=== PATIENT | female | born 1980 | race Caucasian/White ===

== ENCOUNTER → 2017-11-15 16:18 | Outpatient (CLI) | payer MEDICAID, SELFPAY ==
[2017-11-15 23:14] LABS: Amphetamine/Metha Screen,Urine Negative ng/mL (<1000); Barbiturates Screen,Urine Negative ng/mL (<200); Benzodiazepines Screen,Urine Negative ng/mL (200); Cannabinoid Screen,Urine Negative ng/mL (<50); Cocaine Screen,Urine Negative ng/g (<300); Methadone Screen,Urine Negative ng/mL (<300); Opiate Screen,Urine Negative ng/mL (<300); Phencyclidine Screen,Urine Negative ng/mL (<25)
[2017-11-17 18:27] LABS: HIV Screen 4th Generation wRfx Non Reactive (Non Reactive); Rapid Plasma Reagin Ab Titer Non Reactive (NonRea<1:1); Rubella Antibodies, IgG 8.67 index (Immune >0.99)
== END ==
PROVIDERS: Family Provider Family Medicine; PCP Family Medicine; Visit Provider Obstetrics & Gynecology
DX: Z34.90 Encounter for supervision of normal pregnancy, unspecified, unspecified trimester (principal)
CPT/HCPCS: 36415; 80305; 84443; 86592; 86703; 86762; 86850; G0432

== ENCOUNTER 2017-12-17 15:16 | Observation (INO) ==
--- NOTE | 2017-12-17 16:49 | Progress Note ---
Internal Medicine - PN: Subj *Date: 12/17/17 (See H&P. This 37-year-old 3, para 2, Ab0 white female at 11-12 weeks of gestation is admitted because of severe hypertension, as high as 203/116. Her deep tendon reflexes are normal. On admission to the labor room, her blood pressure is 144/99, and she appears calm. A vaginal ultrasound today confirmed a viable at 11 weeks 4 days. Lab work has been drawn , and consult has been placed with Dr. Chetan Hernandez (internal medicine) to evaluate and treat her hypertension. The patient understands the risks associated with her condition.) *Time: 16:47 Exam Vital signs and Labs for Last 24 Hours: Temp Pulse Resp BP Pulse Ox 98.4 F 72 18 144/90 99 12/17/17 15:23 12/17/17 15:23 12/17/17 15:23 12/17/17 15:23 12/17/17 15:23 I & O for Last 24 hours: Intake & Output 12/15/17 12/16/17 12/17/17 12/18/17 11:59 11:59 11:59 11:59 Weight 147 lb 2 oz
[2017-12-17 17:50] LABS: Microscopic, Urine URINE MICROSCOPIC (MICROSCOPIC)
[2017-12-17 17:53] LABS: Basophils # 0.1 K/mm3 (0-0.2); Basophils % 0.6 % (0.1-2.0); Eosinophils # 0.2 K/mm3 (0.0-0.4); Eosinophils % 1.2 % (0.1-12.0); Hematocrit 40.4 % (37.0-47.0); Hemoglobin 13.4 g/dL (12.2-16.2); Lymphocytes # 2.2 K/mm3 (0.7-4.5); Lymphocytes % 17.6 K/mm3 (10-50); Mean Corpuscular HGB Conc 33.2 g/dL (31.8-35.4); Mean Corpuscular Hemoglobin 30.2 pg (27.0-31.2); Mean Corpuscular Volume 90.8 fl (81-99); Mean Platelet Volume 7.6 fl (7.4-10.4); Monocytes # 0.5 K/mm3 (0.1-1.0); Monocytes % 4.1 % (1.7-9.3); Neutrophils # 9.7 K/mm3 (1.8-7.8); Neutrophils % 76.6 % (37.0-80.0); Platelet Count 343 K/mm3 (142-424); Red Blood Count 4.45 M/mm3 (4.20-5.40); Red Cell Distribution Width 12.1 % (11.5-17.5); White Blood Count 12.6 K/mm3 (4.8-10.8)
[2017-12-17 17:54] LABS: Appearance,Urine CLEAR (Clear); Bilirubin,Urine Negative (Negative); Blood, Urine Negative (Negative); Color,Urine YELLOW (Yellow); Glucose,Urine (UA) Negative (Negative); Ketones,Urine Negative (Negative); Leukocyte Esterase,Urine Negative (Negative); PH,Urine 7.5 (5.0-8.5); Protein,Urine Negative (Negative); Urobilinogen,Urine 0.2 EU/dl (0.2)
[2017-12-17 17:55] LABS: Anion Gap 13.6 mEq/L (5-15); Potassium 3.6 mmoL/L (3.5-5.1)
[2017-12-17 18:02] LABS: Bacteria,Urine Trace /lpf
--- NOTE | 2017-12-17 18:22 | Consult Report ---
*Admission Date: 12/17/17 *Chief complaint: Malignant hypertension *History of present illness: Internal medicine consult note: Consulting physician Dr. Gilles Ureña: Reason for consultation: Hypertension evaluation and management 37-year-old white female, , 11 weeks of gestation who has a history of essential hypertension diagnosed after her second 13 years ago. Her first , 15 years ago, was complicated by late term hypertension, treated with bedrest and received a diagnosis of preeclampsia. Delivery was uncomplicated and she did well, after her second delivery 2 years later-which was uncomplicated and the was not associate with hypertension-she received the diagnosis of essential hypertension several months after her second child born. She has been on lisinopril which was effective but caused sweating, and then losartan which did well for her for several years. She stopped her control pills because of some hormonal imbalances and unexpectedly became with this and was immediately stopped from her losartan and labetalol 100 mg was started. This has done well and patient had been taking this twice daily until she had noted that her blood pressure was too low and she felt tired and sluggish. She began taking the medicine just once daily and documented blood pressures that were very well controlled in the low 110-120 level systolically. 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 Her coworkers noted that she felt bad and asked her to sit down thinking she might be having a panic attack. Her blood pressure was measured above 200 systolic. She was brought to her unindentured apprentice office were blood pressure was repeated in the 190 range. She was admitted to hospital for further evaluation and I was consulted. Currently the patient feels well. Has a negative review of systems below except for the symptoms noted above. [facility] History Medical History: Reports:: Anxiety, Hypertension Other Medical History: Reports: Other Other Surgeries: Yes: Other. No: Amputation: No Fractures: No - *Social History Smoking Status: Never smoker Alcohol Intake: never - Psychiatric History Pschychiatric History:: Reports:: Anxiety *Family Hx:: Stroke, Hypertension, Cancer, Coronary Artery Disease Para: 2 Review of Systems - Review of Systems Review of systems:: unable to obtain, other, pertinent systems reviewed and negative unless documented below - Constitutional Denies anorexia, Denies body ache(s), Denies chills, Denies excessive sweating, Denies fever(s) - Eyes Denies blind spots, Denies blurry vision, Denies change in vision, Denies double vision - ENT Denies abnormal hearing, Denies poor balance, Denies dizziness - *Cardiovascular Reports chest pain (Intermittent/sharp pains with working), Denies chest pain at rest, Denies chest pain with activity, Denies leg pain with activity, Denies excessive sweating, Denies shortness of breath (Non-anginal pain), Denies irregular heart rhythm, Denies leg swelling, Denies radiating jaw, neck or arm pain - *Respiratory Denies change in phlegm color, Denies chest congestion, Denies cough, Denies shortness of breath with activity - *Gastrointestinal Denies abdominal pain, Denies belching, Denies bloating - *Genitourinary Comments: The [employer] CREATIVE DIRECTOR notes - *Musculoskeletal Denies abnormal walking, Denies joint pain, Denies decreased muscle mass - Integumentary/Breasts Denies acne, Denies hair loss, Denies bleeding lesions, Denies change in hair - *Neurologic Denies abnormal walking, Denies abnormal hearing, Denies abnormal speech, Denies seizure-like activity, Denies unsteadiness, Denies dizziness Meds Home Medications Medication Instructions Recorded Confirmed Type cetirizine 10 mg tablet 10 mg PO DAILY tab 11/01/17 12/17/17 History ferrous sulfate 325 mg (65 mg 325 mg PO DAILY tab 11/15/17 12/17/17 History iron) tablet 1 tab PO DAILY 11/15/17 12/17/17 History vitamin,calcium,nfnunrwm-pfuf-elmdk acid tablet Labetalol HCl [Normodyne 100mg 100 mg PO BID 12/17/17 12/17/17 History tablet] Allergies Allergy/AdvReac Type Severity Reaction Status Date / Time No Known Allergies Allergy Unverified 12/17/17 14:21 Exam Vital signs and Labs for Last 24 Hours: Temp Pulse Resp BP Pulse Ox 98.4 F 72 18 158/99 99 12/17/17 16:30 12/17/17 16:30 12/17/17 16:30 12/17/17 17:45 12/17/17 16:30 Laboratory Results - last 24 hr 12/17/17 15:40: WBC 12.6 H, RBC 4.45, Hgb 13.4, Hct 40.4, MCV 90.8, MCH 30.2, MCHC 33.2, RDW 12.1, Plt Count 343, MPV 7.6, Neut % (Auto) 76.6, Lymph % (Auto) 17.6, [place] % (Auto) 4.1, Eos % (Auto) 1.2, Baso % (Auto) 0.6, Neut # (Auto) 9.7 H, Lymph # (Auto) 2.2, [place] # (Auto) 0.5, Eos # (Auto) 0.2, Baso # (Auto) 0.1 12/17/17 15:40: Sodium 137, Potassium 3.6, Chloride 101, Carbon Dioxide 26, Anion Gap 13.6, BUN 13, Creatinine 0.54 L, Estimated Creat Clear 153, Estimated GFR 128, Est GFR ( Amer) 155, Glucose 95 12/17/17 15:40: Urine Color Yellow, Urine Appearance Clear, Urine pH 7.5, Ur Specific [place] 1.010, Urine Protein Negative, Urine Glucose (UA) Negative, Urine Ketones Negative, Urine Blood Negative, Urine Nitrate Negative, Urine Bilirubin Negative, Urine Urobilinogen 0.2, Ur Leukocyte Esterase Negative, Urine RBC None, Urine WBC 3-5, Ur Squamous Epith Cells 3-5, Urine Bacteria Trace I & O for Last 24 hours: Intake & Output 12/15/17 12/16/17 12/17/17 12/18/17 11:59 11:59 11:59 11:59 Weight 147 lb 2 oz Narrative: Patient is alert, pleasant, oriented 3. Talkative. Cranial nerve exam is unremarkable with symmetric and normal cranial nerves II- XII bilaterally. Lungs are clear, well-expanded. No JVD. Heart rate regular without murmurs gallops rubs, no inducible murmurs with handgrip or Valsalva. Nondisplaced PMI. She has no edema or clubbing in hands or feet. Abdomen is soft and nontender. Peripheral neurologic exam nonfocal, good distal perfusion. Internal Medicine - CN: Reslt - Labs CBC & Chem 7: 12/17/17 15:40 12/17/17 15:40 Labs: Short CBC 12/17/17 Range/Units 15:40 WBC 12.6 H (4.8-10.8) K/mm3 Hgb 13.4 (12.2-16.2) g/dL Hct 40.4 (37.0-47.0) % Plt Count 343 (142-424) K/mm3 BMP 12/17/17 15:40 Sodium 137 Potassium 3.6 Chloride 101 Carbon Dioxide 26 BUN 13 Creatinine 0.54 L Glucose 95 Urine 12/17/17 Range/Units 15:40 Urine Color Yellow (Yellow) Urine Appearance Clear (Clear) Urine pH 7.5 (5.0-8.5) Ur Specific [place] 1.010 (1.005-1.030) Urine Protein Negative (Negative) Urine Glucose (UA) Negative (Negative) Assessment and Plan (1) Accelerated hypertension Current visit: Yes Status: Acute Category: Medical Code(s): I10 - Essential (primary) hypertension No evidence of preeclampsia given her normal physical exam and normal urinalysis. EKG. Echocardiogram to assess her palpitation history. Agree with labetalol as a good choice during the . Would increase dose to 200 mg twice daily and watch overnight.
--- NOTE | 2017-12-18 06:53 | Progress Note ---
Internal Medicine - PN: Subj *Date: 12/18/17 *Time: 06:49 Exam Vital signs and Labs for Last 24 Hours: Temp Pulse Resp BP Pulse Ox 98.2 F 74 17 124/73 99 12/17/17 20:30 12/18/17 04:25 12/18/17 04:25 12/18/17 04:25 12/17/17 16:30 Laboratory Results - last 24 hr 12/17/17 15:40: WBC 12.6 H, RBC 4.45, Hgb 13.4, Hct 40.4, MCV 90.8, MCH 30.2, MCHC 33.2, RDW 12.1, Plt Count 343, MPV 7.6, Neut % (Auto) 76.6, Lymph % (Auto) 17.6, [place] % (Auto) 4.1, Eos % (Auto) 1.2, Baso % (Auto) 0.6, Neut # (Auto) 9.7 H, Lymph # (Auto) 2.2, [place] # (Auto) 0.5, Eos # (Auto) 0.2, Baso # (Auto) 0.1 12/17/17 15:40: Sodium 137, Potassium 3.6, Chloride 101, Carbon Dioxide 26, Anion Gap 13.6, BUN 13, Creatinine 0.54 L, Estimated Creat Clear 153, Estimated GFR 128, Est GFR ( Amer) 155, Glucose 95 12/17/17 15:40: Urine Color Yellow, Urine Appearance Clear, Urine pH 7.5, Ur Specific [place] 1.010, Urine Protein Negative, Urine Glucose (UA) Negative, Urine Ketones Negative, Urine Blood Negative, Urine Nitrate Negative, Urine Bilirubin Negative, Urine Urobilinogen 0.2, Ur Leukocyte Esterase Negative, Urine RBC None, Urine WBC 3-5, Ur Squamous Epith Cells 3-5, Urine Bacteria Trace I & O for Last 24 hours: Intake & Output 12/15/17 12/16/17 12/17/17 12/18/17 11:59 11:59 11:59 11:59 Weight 147 lb 2 oz Assessment and Plan (1) Accelerated hypertension Current visit: Yes Status: Acute Category: Medical Code(s): I10 - Essential (primary) hypertension
--- NOTE | 2017-12-18 08:52 | Progress Note ---
Internal Medicine - PN: Subj *Date: 12/18/17 *Time: 08:50 Interval history: This is hospital day #2. The patient is afebrile. Her vital signs are stable. Her blood pressure on increased labetalol is in the 130s over 70s. She feels much better. She had an echocardiogram this morning (results pending), as ordered per Dr. Hernandez. He has increased her labetalol to 200 mg p.o. twice daily. I am going to have her ambulate and observe her blood pressure under those conditions. Exam Vital signs and Labs for Last 24 Hours: Temp Pulse Resp BP Pulse Ox 98.2 F 74 17 124/73 99 12/17/17 20:30 12/18/17 04:25 12/18/17 04:25 12/18/17 04:25 12/17/17 16:30 Laboratory Results - last 24 hr 12/17/17 15:40: WBC 12.6 H, RBC 4.45, Hgb 13.4, Hct 40.4, MCV 90.8, MCH 30.2, MCHC 33.2, RDW 12.1, Plt Count 343, MPV 7.6, Neut % (Auto) 76.6, Lymph % (Auto) 17.6, [place] % (Auto) 4.1, Eos % (Auto) 1.2, Baso % (Auto) 0.6, Neut # (Auto) 9.7 H, Lymph # (Auto) 2.2, [place] # (Auto) 0.5, Eos # (Auto) 0.2, Baso # (Auto) 0.1 12/17/17 15:40: Sodium 137, Potassium 3.6, Chloride 101, Carbon Dioxide 26, Anion Gap 13.6, BUN 13, Creatinine 0.54 L, Estimated Creat Clear 153, Estimated GFR 128, Est GFR ( Amer) 155, Glucose 95 12/17/17 15:40: Urine Color Yellow, Urine Appearance Clear, Urine pH 7.5, Ur Specific [place] 1.010, Urine Protein Negative, Urine Glucose (UA) Negative, Urine Ketones Negative, Urine Blood Negative, Urine Nitrate Negative, Urine Bilirubin Negative, Urine Urobilinogen 0.2, Ur Leukocyte Esterase Negative, Urine RBC None, Urine WBC 3-5, Ur Squamous Epith Cells 3-5, Urine Bacteria Trace I & O for Last 24 hours: Intake & Output 12/15/17 12/16/17 12/17/17 12/18/17 11:59 11:59 11:59 11:59 Weight 147 lb 2 oz Assessment and Plan (1) Accelerated hypertension Current visit: Yes Status: Acute Category: Medical Code(s): I10 - Essential (primary) hypertension
--- NOTE | 2017-12-18 09:25 | Progress Note ---
Internal Medicine - PN: Subj *Date: 12/18/17 *Time: 11:56 Interval history: Patient feels well. She reports ongoing issues with constipation. Alert and oriented x3. Rate and rhythm regular. Lung sounds clear and equal. Abdomen soft and nontender. No LE edema. Pulses 2+ Exam Vital signs and Labs for Last 24 Hours: Temp Pulse Resp BP Pulse Ox 98.2 F 74 17 124/73 99 12/17/17 20:30 12/18/17 04:25 12/18/17 04:25 12/18/17 04:25 12/17/17 16:30 Laboratory Results - last 24 hr 12/17/17 15:40: WBC 12.6 H, RBC 4.45, Hgb 13.4, Hct 40.4, MCV 90.8, MCH 30.2, MCHC 33.2, RDW 12.1, Plt Count 343, MPV 7.6, Neut % (Auto) 76.6, Lymph % (Auto) 17.6, [place] % (Auto) 4.1, Eos % (Auto) 1.2, Baso % (Auto) 0.6, Neut # (Auto) 9.7 H, Lymph # (Auto) 2.2, [place] # (Auto) 0.5, Eos # (Auto) 0.2, Baso # (Auto) 0.1 12/17/17 15:40: Sodium 137, Potassium 3.6, Chloride 101, Carbon Dioxide 26, Anion Gap 13.6, BUN 13, Creatinine 0.54 L, Estimated Creat Clear 153, Estimated GFR 128, Est GFR ( Amer) 155, Glucose 95 12/17/17 15:40: Urine Color Yellow, Urine Appearance Clear, Urine pH 7.5, Ur Specific [place] 1.010, Urine Protein Negative, Urine Glucose (UA) Negative, Urine Ketones Negative, Urine Blood Negative, Urine Nitrate Negative, Urine Bilirubin Negative, Urine Urobilinogen 0.2, Ur Leukocyte Esterase Negative, Urine RBC None, Urine WBC 3-5, Ur Squamous Epith Cells 3-5, Urine Bacteria Trace I & O for Last 24 hours: Intake & Output 12/15/17 12/16/17 12/17/17 12/18/17 11:59 11:59 11:59 11:59 Weight 147 lb 2 oz Assessment and Plan (1) Accelerated hypertension Current visit: Yes Status: Acute Category: Medical Code(s): I10 - Essential (primary) hypertension - Assessment and plan all Dx Assessment and Plan for all problems:: Patient responded nicely to increased dose of labetolol with SBP 105-120 this morning. Labs were reviewed and unremarkable. Preliminary Echo was unremarkable with EF 60%. Final report pending. Ok to discharge on Labetolol 200 mg PO BID with short term FU in our office with Dr. Hernandez on Sunday.
[2017-12-18 11:42] VITALS: BP 105/58
--- NOTE | 2017-12-18 12:59 | Progress Note ---
Internal Medicine - PN: Subj *Date: 12/18/17 *Time: 12:56 (The patient's echocardiogram was normal. She has been ambulating and doing well on labetalol 200 mg twice daily. Her blood pressure is currently 105/58 with a pulse rate of 76. She will be discharged, to be followed by Dr. Hernandez in 3 days and by myself in 6 days. She is to remain at home, not go to work, and engage in no strenuous activity. This is been explained to the patient and her .) Exam Vital signs and Labs for Last 24 Hours: Temp Pulse Resp BP Pulse Ox 98.3 F 76 16 105/58 98 12/18/17 11:23 12/18/17 11:23 12/18/17 11:23 12/18/17 11:23 12/18/17 11:23 Laboratory Results - last 24 hr 12/17/17 15:40: WBC 12.6 H, RBC 4.45, Hgb 13.4, Hct 40.4, MCV 90.8, MCH 30.2, MCHC 33.2, RDW 12.1, Plt Count 343, MPV 7.6, Neut % (Auto) 76.6, Lymph % (Auto) 17.6, [place] % (Auto) 4.1, Eos % (Auto) 1.2, Baso % (Auto) 0.6, Neut # (Auto) 9.7 H, Lymph # (Auto) 2.2, [place] # (Auto) 0.5, Eos # (Auto) 0.2, Baso # (Auto) 0.1 12/17/17 15:40: Sodium 137, Potassium 3.6, Chloride 101, Carbon Dioxide 26, Anion Gap 13.6, BUN 13, Creatinine 0.54 L, Estimated Creat Clear 153, Estimated GFR 128, Est GFR ( Amer) 155, Glucose 95 12/17/17 15:40: Urine Color Yellow, Urine Appearance Clear, Urine pH 7.5, Ur Specific [place] 1.010, Urine Protein Negative, Urine Glucose (UA) Negative, Urine Ketones Negative, Urine Blood Negative, Urine Nitrate Negative, Urine Bilirubin Negative, Urine Urobilinogen 0.2, Ur Leukocyte Esterase Negative, Urine RBC None, Urine WBC 3-5, Ur Squamous Epith Cells 3-5, Urine Bacteria Trace I & O for Last 24 hours: Intake & Output 12/16/17 12/17/17 12/18/17 12/19/17 11:59 11:59 11:59 11:59 Weight 147 lb 2 oz Assessment and Plan (1) Accelerated hypertension Current visit: Yes Status: Acute Category: Medical Code(s): I10 - Essential (primary) hypertension
--- NOTE | 2017-12-18 13:03 | Discharge Summary ---
General - General Admission date: 12/17/17 Discharge date: 12/18/17 HPI HPI: Internal medicine consult note: Consulting physician Dr. Gilles Ureña: Reason for consultation: Hypertension evaluation and management 37-year-old white female, , 11 weeks of gestation who has a history of essential hypertension diagnosed after her second 13 years ago. Her first , 15 years ago, was complicated by late term hypertension, treated with bedrest and received a diagnosis of preeclampsia. Delivery was uncomplicated and she did well, after her second delivery 2 years later-which was uncomplicated and the was not associate with hypertension-she received the diagnosis of essential hypertension several months after her second child born. She has been on lisinopril which was effective but caused sweating, and then losartan which did well for her for several years. She stopped her control pills because of some hormonal imbalances and unexpectedly became with this and was immediately stopped from her losartan and labetalol 100 mg was started. This has done well and patient had been taking this twice daily until she had noted that her blood pressure was too low and she felt tired and sluggish. She began taking the medicine just once daily and documented blood pressures that were very well controlled in the low 110-120 level systolically. 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 Her coworkers noted that she felt bad and asked her to sit down thinking she might be having a panic attack. Her blood pressure was measured above 200 systolic. She was brought to her fashion marketer office were blood pressure was repeated in the 190 range. She was admitted to hospital for further evaluation and I was consulted. Currently the patient feels well. Has a negative review of systems below except for the symptoms noted above. Hospital Course Hospital Course: This 37-year-old Ab0 white female at 11-12 weeks of gestation was admitted with extreme hypertension, as high as 203/120. Her lab work, OB ultrasound, and echocardiogram are all normal. She had been on labetalol, but was only taking it (100 mg) once a day. Dr. Chetan Hernandez (line closer) consulted and increased her labetalol to 200 mg p.o. twice a day. On that medication and bedrest, her blood pressure has remained stable and is currently 105/58. She has been ambulating, without an adverse effect on her blood pressure. Will be discharged today on labetalol 200 mg p.o. twice daily, with instructions to stay at home (not go to work) and engage in no strenuous activity. She is to follow-up with Dr. Hernandez in 3 days and with myself in 6 days. She is not a smoker. Objective Vital signs: Temp Pulse Resp BP Pulse Ox 98.3 F 76 16 105/58 98 12/18/17 11:23 12/18/17 11:23 12/18/17 11:23 12/18/17 11:23 12/18/17 11:23 Results Labs on day of discharge: Labs from last 24 hours 12/17/17 12/17/17 12/17/17 15:40 15:40 15:40 WBC 12.6 H RBC 4.45 Hgb 13.4 Hct 40.4 MCV 90.8 MCH 30.2 MCHC 33.2 RDW 12.1 Plt Count 343 MPV 7.6 Neut % (Auto) 76.6 Lymph % (Auto) 17.6 [place] % (Auto) 4.1 Eos % (Auto) 1.2 Baso % (Auto) 0.6 Neut # (Auto) 9.7 H Lymph # (Auto) 2.2 [place] # (Auto) 0.5 Eos # (Auto) 0.2 Baso # (Auto) 0.1 Sodium 137 Potassium 3.6 Chloride 101 Carbon Dioxide 26 Anion Gap 13.6 BUN 13 Creatinine 0.54 L Estimated Creat Clear 153 Estimated GFR 128 Est GFR ( Amer) 155 Glucose 95 Urine Color Yellow Urine Appearance Clear Urine pH 7.5 Ur Specific [place] 1.010 Urine Protein Negative Urine Glucose (UA) Negative Urine Ketones Negative Urine Blood Negative Urine Nitrate Negative Urine Bilirubin Negative Urine Urobilinogen 0.2 Ur Leukocyte Esterase Negative Urine RBC None Urine WBC 3-5 Ur Squamous Epith Cells 3-5 Urine Bacteria Trace DS: Diagnosis - Discharge Diagnosis (1) Accelerated hypertension Status: Acute Discharge Plan - Patient Discharge Instructions - Follow up Plan Home Medications: Home Medications Medication Instructions Recorded Confirmed Type cetirizine 10 mg tablet 10 mg PO DAILY tab 11/01/17 12/17/17 History ferrous sulfate 325 mg (65 mg 325 mg PO DAILY tab 11/15/17 12/17/17 History iron) tablet 1 tab PO DAILY 11/15/17 12/17/17 History vitamin,calcium,weozhigl-tkxz-yflms acid tablet Labetalol HCl [Normodyne 100mg 100 mg PO BID 12/17/17 12/17/17 History tablet] Prescriptions/Medication Reconciliation: No Action ferrous sulfate 325 mg (65 mg iron) tablet 325 mg PO DAILY tab cetirizine 10 mg tablet 10 mg PO DAILY tab vitamin,calcium,bcnvpeot-ecat-xfpbk acid tablet 1 tab PO DAILY Labetalol HCl [Normodyne 100mg tablet] 100 mg PO BID
--- NOTE | 2017-12-18 22:23 | Cardiology Report ---
PROCEDURE: 2-D M-mode and color Doppler study INDICATIONS FOR THE TEST: Chest pain COPD Heart Murmur Tobacco Smoking Palpitations+ Fatigue Syncope Edema Hypertension+Diabetes Mellitus Rheumatic Fever SOB JEFFERY Obesity Hyperlipidemia Family History HD Additional History B/S PERFORMED PATIENT INFORMATION HEIGHT:62 WEIGHT:147 GENDER: Female B/P:158/99 2-D/M-MODE INTERPRETATION: 2-D MEASUREMENTS OBSERVED VALUES IN CMS Right Ventricular Dimension (RVDd) 2.0 Interventricular Septum (Thickness)(IVsd) 0.8 Left Ventricular Internal Dimensions(LVIDd) 4.9 Left Ventricular Posterior Wall (Thickness)(LVPWd) 0.8 Aortic Root 2.6 Aortic Cusp Separation 1.9 Left Atrial Dimensions (LAD) 3.4 2D 1. Left atrium is normal size, left ventricle is normal size, there is no concentric left ventricular hypertrophy, visually estimated ejection fraction 55% with no obvious regional wall motion abnormality. 2. The right atrium and right ventricle are normal size and contractility. 3. The aortic valve is minimally thickened and fibrosed. 4. The mitral and tricuspid valve are grossly normal. 5. The pulmonic valve is poorly visualized. 6. No significant pericardial effusion noted. DOPPLER INTERROGATION: Doppler interrogation of the aortic, mitral and tricuspid valvular presence of mild mitral and tricuspid regurgitation, tricuspid and jet velocity insufficient for calculation of the right ventricular systolic pressure, diastolic parameters are within normal range. Agitated saline contrast study identifies right to left shunt through patent foramen ovale. CONCLUSION: 1. Normal left ventricular size, preserved left ventricular systolic function, visually estimated ejection fraction 55% with no obvious regional wall motion abnormality, diastolic parameters are within normal range. 2. Mild mitral and tricuspid regurgitation 3. Agitated saline contrast study identifies right to left shunt through patent foramen ovale. 4. No significant pericardial effusion noted.
== END 2017-12-18 13:30 | disposition home or self-care (01) ==
LOC: OB
PROVIDERS: ADMIT Obstetrics & Gynecology; ATTEND Obstetrics & Gynecology

== ENCOUNTER → 2018-02-01 09:34 | Outpatient (CLI) | payer MEDICAID, SELFPAY ==
[2018-02-04 23:09] LABS: AFP Value 28.3 ng/mL (.); DIA MoM 1.01 (.); DSR (Second Trimester) 1 IN 1472 (.); Gest. Age on Collection Date 17.3 WEEKS (.); Insulin Dep Diabetes No (.); Maternal Age At EDD 35.7 yr (.); OSBR Risk 1 IN 10000 (.); Results Report (.); hCG MoM 0.78 (.); hCG Value 23493 mIU/mL (.); uE3 MoM 1.01 (.); uE3 Value 1.08 ng/mL (.)
[2018-02-05 06:10] LABS: Gestat. Age Based On EDD (.)
== END ==
PROVIDERS: Visit Provider Obstetrics & Gynecology
DX: Z34.90 Encounter for supervision of normal pregnancy, unspecified, unspecified trimester (principal)
CPT/HCPCS: 36415; 82106

== ENCOUNTER → 2018-03-21 09:14 | Outpatient (CLI) | payer MEDICAID, SELFPAY ==
[2018-03-21 10:45] LABS: Glucose 1 Hour 132 mg/dL (74-106)
== END ==
PROVIDERS: Family Provider Family Medicine; PCP Family Medicine; Visit Provider Obstetrics & Gynecology
DX: Z13.1 Encounter for screening for diabetes mellitus (principal); Z34.90 Encounter for supervision of normal pregnancy, unspecified, unspecified trimester
CPT/HCPCS: 36415; 82951

== ENCOUNTER → 2018-05-30 17:15 | Outpatient (REF) | payer MEDICAID, SELFPAY | LOC: LAB 17:15 | PROVIDERS: Visit Provider Nurse Practitioner Obstetrics & Gynecology | DX: Z34.90 Encounter for supervision of normal pregnancy, unspecified, unspecified trimester (principal) | CPT/HCPCS: 86403 ==

== ENCOUNTER 2018-06-28 23:09 | Inpatient (IN) ==
[2018-06-28 23:54] LABS: Appearance,Urine CLEAR (Clear); Bilirubin,Urine Negative (Negative); Blood, Urine Negative (Negative); Color,Urine YELLOW (Yellow); Glucose,Urine (UA) Negative (Negative); Ketones,Urine TRACE (Negative); Leukocyte Esterase,Urine TRACE (Negative); Microscopic, Urine URINE MICROSCOPIC (MICROSCOPIC); Protein,Urine TRACE (Negative); Specific Gravity, Urine 1.015 (1.005-1.030)
[2018-06-28 23:56] LABS: Amorphous Sediment,Urine Trace /lpf; Bacteria,Urine Trace /lpf
[2018-06-29 01:05] LABS: Basophils % 0.4 % (0.1-2.0); Eosinophils # 0.1 K/mm3 (0.0-0.4); Eosinophils % 1.5 % (0.1-12.0); Hematocrit 33.7 % (37.0-47.0); Hemoglobin 11.2 g/dL (12.2-16.2); Lymphocytes # 2.1 K/mm3 (0.7-4.5); Lymphocytes % 21.4 K/mm3 (10-50); Mean Corpuscular HGB Conc 33.2 g/dL (31.8-35.4); Mean Corpuscular Hemoglobin 30.9 pg (27.0-31.2); Mean Corpuscular Volume 92.9 fl (81-99); Mean Platelet Volume 7.3 fl (7.4-10.4); Monocytes # 0.6 K/mm3 (0.1-1.0); Monocytes % 6.2 % (1.7-9.3); Neutrophils # 6.8 K/mm3 (1.8-7.8); Neutrophils % 70.6 % (37.0-80.0); Platelet Count 273 K/mm3 (142-424); Red Blood Count 3.63 M/mm3 (4.20-5.40); Red Cell Distribution Width 13.7 % (11.5-17.5); White Blood Count 9.6 K/mm3 (4.8-10.8)
[2018-06-29 01:17] LABS: Anion Gap 13.7 mEq/L (5-15); Calcium 8.8 mg/dL (8.5-10.1); Potassium 3.7 mmoL/L (3.5-5.1); Uric Acid 4.4 mg/dL (2.6-7.2)
[2018-06-29 01:19] LABS: Activated Partial Thrombo Time 25.4 seconds (23.6-34.0); INR 0.91 (0.9-1.1); Prothrombin Time 9.4 seconds (9.4-11.8)
--- NOTE | 2018-06-29 11:18 | Progress Note ---
[facility] Anesthesia Checklist - Patient Identification Patient Identification: Arm Band - Structural Data Admitted From: Home Planned Operative Procedure/s: labor epidural Consent for Planned Operative Procedure(s) Verified: Yes Verified Documents: Surgical Consent, History and Physical - NPO Status Verified Time NPO: 00:00 - Additional verifications Anesthesia Reactions: No - Airway Assessment C-Spine Mobility Assessed: Yes (mp2) TMJ Mobility Assessed: Yes Dentition: Good Dentition - Neurological Assessment Level of Consciousness: Awake, Alert - Anesthesia Plan Anesthesia Risk discussed: Yes Anesthesia Plan: Verified ASA Class: II Anesthesia Type: Epidural [facility] History I have reviewed the patient's past medical history: Yes Medical History: Reports:: Anxiety, Hypertension Other Medical History: Reports: Other Other Surgeries: Yes: Other. No: Amputation: No Fractures: No - *Social History Smoking Status: Never smoker Alcohol Intake: never Substance Use Type: denies use - Psychiatric History Pschychiatric History:: Reports:: Anxiety *Family Hx:: Stroke, Hypertension, Cancer, Coronary Artery Disease Para: 2
--- NOTE | 2018-06-29 13:58 | Progress Note ---
Internal Medicine - PN: Subj *Date: 06/29/18 *Time: 13:57 Interval history: Spontaneous rupture of membranes proximally an hour ago (clear fluid). Epidural is in situ and working well. Contractions are strong and regular. Blood pressure is stable. An internal monitor has been placed at this time. Patient's cervix is 80% effaced, 4 cm, with the presenting vertex at -2 station. Impression: Progressing. Plan is to continue IV magnesium sulfate and IV Pitocin, in anticipation of a vaginal delivery. Exam Vital signs and Labs for Last 24 Hours: Temp Pulse Resp BP Pulse Ox 97.7 F 90 18 120/69 97 06/29/18 04:24 06/29/18 04:24 06/29/18 04:24 06/29/18 04:24 06/29/18 01:16 Laboratory Results - last 24 hr 06/28/18 23:20: Urine Color Yellow, Urine Appearance Clear, Urine pH 7.0, Ur Specific [place] 1.015, Urine Protein Trace, Urine Glucose (UA) Negative, Urine Ketones Trace, Urine Blood Negative, Urine Nitrate Negative, Urine Bilirubin Negative, Urine Urobilinogen 1.0, Ur Leukocyte Esterase Trace, Urine WBC 3-5, Ur Squamous Epith Cells 10-20, Ur Renal Epithelial Cell 5-10, Amorphous Sediment Trace, Urine Bacteria Trace 06/29/18 00:55: WBC 9.6, RBC 3.63 L, Hgb 11.2 L, Hct 33.7 L, MCV 92.9, MCH 30.9, MCHC 33.2, RDW 13.7, Plt Count 273, MPV 7.3 L, Neut % (Auto) 70.6, Lymph % (Auto) 21.4, [place] % (Auto) 6.2, Eos % (Auto) 1.5, Baso % (Auto) 0.4, Neut # (Auto) 6.8, Lymph # (Auto) 2.1, [place] # (Auto) 0.6, Eos # (Auto) 0.1, Baso # (Auto) 0.0 06/29/18 00:55: PT 9.4, INR 0.91, APTT 25.4, Fibrinogen 442, D-Dimer 1190 H* 06/29/18 00:55: Sodium 138, Potassium 3.7, Chloride 105, Carbon Dioxide 23, Anion Gap 13.7, BUN 6 L, Creatinine 0.61, Estimated Creat Clear 148, Estimated GFR 112, Est GFR ( Amer) 135, Glucose 99, Uric Acid 4.4, Calcium 8.8, Magnesium 1.8, AST 27, ALT 28 06/29/18 00:55: Blood Type O Positive, Antibody Screen Negative I & O for Last 24 hours: Intake & Output 06/27/18 06/28/18 06/29/18 06/30/18 11:59 11:59 11:59 11:59 Weight 161 lb
--- NOTE | 2018-06-29 16:19 | Progress Note ---
Internal Medicine - PN: Subj *Date: 06/29/18 *Time: 16:16 Exam Vital signs and Labs for Last 24 Hours: Temp Pulse Resp BP Pulse Ox 97.7 F 90 18 120/69 97 06/29/18 04:24 06/29/18 04:24 06/29/18 04:24 06/29/18 04:24 06/29/18 01:16 Laboratory Results - last 24 hr 06/28/18 23:20: Urine Color Yellow, Urine Appearance Clear, Urine pH 7.0, Ur Specific [place] 1.015, Urine Protein Trace, Urine Glucose (UA) Negative, Urine Ketones Trace, Urine Blood Negative, Urine Nitrate Negative, Urine Bilirubin Negative, Urine Urobilinogen 1.0, Ur Leukocyte Esterase Trace, Urine WBC 3-5, Ur Squamous Epith Cells 10-20, Ur Renal Epithelial Cell 5-10, Amorphous Sediment Trace, Urine Bacteria Trace 06/29/18 00:55: WBC 9.6, RBC 3.63 L, Hgb 11.2 L, Hct 33.7 L, MCV 92.9, MCH 30.9, MCHC 33.2, RDW 13.7, Plt Count 273, MPV 7.3 L, Neut % (Auto) 70.6, Lymph % (Auto) 21.4, [place] % (Auto) 6.2, Eos % (Auto) 1.5, Baso % (Auto) 0.4, Neut # (Auto) 6.8, Lymph # (Auto) 2.1, [place] # (Auto) 0.6, Eos # (Auto) 0.1, Baso # (Auto) 0.0 06/29/18 00:55: PT 9.4, INR 0.91, APTT 25.4, Fibrinogen 442, D-Dimer 1190 H* 06/29/18 00:55: Sodium 138, Potassium 3.7, Chloride 105, Carbon Dioxide 23, Anion Gap 13.7, BUN 6 L, Creatinine 0.61, Estimated Creat Clear 148, Estimated GFR 112, Est GFR ( Amer) 135, Glucose 99, Uric Acid 4.4, Calcium 8.8, Magnesium 1.8, AST 27, ALT 28 06/29/18 00:55: Blood Type O Positive, Antibody Screen Negative I & O for Last 24 hours: Intake & Output 10/2506/28/18 06/29/18 06/30/18 11:59 11:59 11:59 11:59 Weight 161 lb
--- NOTE | 2018-06-29 16:21 | Progress Note ---
Internal Medicine - PN: Subj *Date: 06/29/18 *Time: 16:20 (Cervix C, C, +1--Pt will begin pushing) Exam Vital signs and Labs for Last 24 Hours: Temp Pulse Resp BP Pulse Ox 97.7 F 90 18 120/69 97 06/29/18 04:24 06/29/18 04:24 06/29/18 04:24 06/29/18 04:24 06/29/18 01:16 Laboratory Results - last 24 hr 06/28/18 23:20: Urine Color Yellow, Urine Appearance Clear, Urine pH 7.0, Ur Specific [place] 1.015, Urine Protein Trace, Urine Glucose (UA) Negative, Urine Ketones Trace, Urine Blood Negative, Urine Nitrate Negative, Urine Bilirubin Negative, Urine Urobilinogen 1.0, Ur Leukocyte Esterase Trace, Urine WBC 3-5, Ur Squamous Epith Cells 10-20, Ur Renal Epithelial Cell 5-10, Amorphous Sediment Trace, Urine Bacteria Trace 06/29/18 00:55: WBC 9.6, RBC 3.63 L, Hgb 11.2 L, Hct 33.7 L, MCV 92.9, MCH 30.9, MCHC 33.2, RDW 13.7, Plt Count 273, MPV 7.3 L, Neut % (Auto) 70.6, Lymph % (Auto) 21.4, [place] % (Auto) 6.2, Eos % (Auto) 1.5, Baso % (Auto) 0.4, Neut # (Auto) 6.8, Lymph # (Auto) 2.1, [place] # (Auto) 0.6, Eos # (Auto) 0.1, Baso # (Auto) 0.0 06/29/18 00:55: PT 9.4, INR 0.91, APTT 25.4, Fibrinogen 442, D-Dimer 1190 H* 06/29/18 00:55: Sodium 138, Potassium 3.7, Chloride 105, Carbon Dioxide 23, Anion Gap 13.7, BUN 6 L, Creatinine 0.61, Estimated Creat Clear 148, Estimated GFR 112, Est GFR ( Amer) 135, Glucose 99, Uric Acid 4.4, Calcium 8.8, Magnesium 1.8, AST 27, ALT 28 06/29/18 00:55: Blood Type O Positive, Antibody Screen Negative I & O for Last 24 hours: Intake & Output 06/27/18 06/28/18 06/29/18 06/30/18 11:59 11:59 11:59 11:59 Weight 161 lb
--- NOTE | 2018-06-29 16:46 | Procedure Note ---
- Delivery Note Delivery Date:: 06/29/18 Delivery Time:: 16:32 Anesthesia Type: Epidural Was labor medically induced?: Yes Induction method: per pitocin protocol Gestational age (weeks): 38 Infant delivered prior to 39 weeks?: Yes Justification for early elective delivery:: Gestational Hypertension, Pre- eclampsia Gender: Female at 1 minute: 8 at 5 minutes: 9 Suction Catheter Type: Celine AF:: clear Delivery Procedure:: This 37 y/o WF ([id number]) was admitted last night at 38+ weeks with signs and symptoms of pre-eclampsia, superimposed on gestational hypertension, for which she had been on Labetalol--Her cervix was b2cm dilated, with some [id number] ctrx--d-dimers were elevated, as were DTR's. She was admitted and stabilized with IV magnesium sulfate; at 0600 today, she was induced per IV pitocin protocol and labored under a labor epidural, which worked well. Her BP remained normal throughout--She ruptued membranes spontaneously andwent steadily to completion at 1600. She delivered spontaneously, without an episiotomy. The baby's naso- and oropharynx were bulb-suctioned and the baby cried spontaneously, on the perineum, as it was delivered. The phil was handed into the arms of the attending RN, who assigned Apgars of 8 at 1 minute and 9 at 5 minutes to this 7lb 9oz, 19" female , born at 1629. The placenta delivered spontaneously, intact, at 1632, making the total time in labor 10 hours 32 minutes. The uterus was inspected and felt to be clean, and was involuting well, with IV pitocin running..At roughly 10 minutes , a large gush of blood exuded per vaginam..Fundal massage demonstrateda well-invouted uterus, and exam revealed no evidence of laceration(s). She was treated with Hemabate and the bleeding resorted to normal. The rectovaginal septum was intact..BAS=[id number]. Sponge and needle count was correct..The patient tolerated the procedure well..Blood type O+. Rubella titre immune. . Placental Delivery Description: Spontaneous
[2018-06-29 16:52] LABS: VBG Base Excess -2.8 mmol/L (-2.4-2.3); VBG HCO3 21.7 mmol/L (23-30); VBG Oxygen Saturation 72.2 % (50-70); VBG PCO2 34.2 mmol/L (35-51); VBG PH 7.42 mmol/L (7.31-7.41); VBG PO2 29.1 mmol/L (28-40); VBG Total CO2 22.7 mmol/L (23-27)
[2018-06-30 06:22] LABS: Hematocrit 31.4 % (37.0-47.0); Hemoglobin 10.6 g/dL (12.2-16.2)
--- NOTE | 2018-06-30 09:30 | Progress Note ---
Internal Medicine - PN: Subj *Date: 06/30/18 *Time: 09:28 Interval history: This is day #1. The patient is afebrile. Vital signs stable. Blood pressure 109/57 (magnesium sulfate has been decreased to 1 g/h and will be discontinued later today if blood pressure remains normal). DTRs normal. Lochia is normal with minimal bleeding. Hemoglobin 10.6 g. Uterine fundus involuting well. Breast-feeding well. Impression: Stable. Exam Vital signs and Labs for Last 24 Hours: Temp Pulse Resp BP Pulse Ox 98.1 F 72 16 109/70 L 98 06/30/18 05:43 06/30/18 05:43 06/30/18 05:43 06/30/18 05:43 06/29/18 23:46 Laboratory Results - last 24 hr 06/29/18 16:50: VBG pH 7.42 H, VBG pCO2 34.2 L, VBG pO2 29.1, VBG HCO3 21.7 L, VBG Total CO2 22.7 L, VBG O2 Saturation 72.2 H, VBG Base Excess -2.8 L 06/29/18 17:30: Hgb 11.0 L, Hct 33.0 L 06/30/18 05:40: Magnesium 7.7 H D 06/30/18 05:40: Hgb 10.6 L, Hct 31.4 L I & O for Last 24 hours: Intake & Output 06/27/18 06/28/18 06/29/18 06/30/18 11:59 11:59 11:59 11:59 Weight 161 lb
[2018-07-01 03:10] VITALS: BP 159/82
--- NOTE | 2018-07-01 07:28 | Progress Note ---
Internal Medicine - PN: Subj *Date: 07/01/18 *Time: 07:27 Interval history: This is hospital day #3 and day #2. Patient is afebrile. Vital signs are stable. Magnesium sulfate has been discontinued and her blood pressure is 132/79. DTRs are normal. Lochia is normal. Uterine fundus involuting well. She will be discharged today. Exam Vital signs and Labs for Last 24 Hours: Temp Pulse Resp BP Pulse Ox 98.4 F 70 18 159/82 H 98 07/01/18 00:00 07/01/18 00:00 07/01/18 00:00 07/01/18 00:00 06/30/18 20:35 I & O for Last 24 hours: Intake & Output 06/28/18 06/29/18 06/30/18 07/01/18 11:59 11:59 11:59 11:59 Weight 161 lb
--- NOTE | 2018-07-01 07:31 | Discharge Summary ---
General - General Admission date:: 06/29/18 Discharge date: 07/01/18 (This 37-year-old 3, now para 3, Ab0 white female was admitted at 38-3/7 weeks with signs and symptoms of preeclampsia. She was treated with intravenous magnesium sulfate, and ultimately induced with intravenous Pitocin, under a labor epidural. She delivered spontaneously, without an episiotomy, at 1629 on 06/29/18. The baby was an 8/9, 7 pound 9 ounce, 19 inch female infant, who is breast-feeding and has done well. , the patient is done well. Her magnesium sulfate has been weaned and ultimately discontinued, and her blood pressure is currently 132/79. Her DTRs are normal. Her uterine fundus has involuted well. Her lochia is normal. She is discharged home on the third hospital and second day on iron and vitamins (hemoglobin 10.6 g, but clinically stable), and on Tylenol and Motrin, as needed for pain. She is to resume her labetalol 100 mg p.o. daily, and is to return the office in 2 weeks.) Hospital Course Rhogam Administration: Not Indicated Objective Vital signs: Temp Pulse Resp BP Pulse Ox 98.4 F 70 18 159/82 H 98 07/01/18 00:00 07/01/18 00:00 07/01/18 00:00 07/01/18 00:00 06/30/18 20:35 Discharge Plan - Patient Discharge Instructions - Follow up Plan Home Medications: Home Medications Medication Instructions Recorded Confirmed Type cetirizine 10 mg tablet 10 mg PO DAILY tab 11/01/17 06/29/18 History 1 tab PO DAILY 11/15/17 06/29/18 History vitamin,calcium,dejkwztb-bhll-iugpv acid tablet labetalol 100 mg tablet 100 mg PO BID 02/01/18 06/29/18 History Prescriptions/Medication Reconciliation: No Action cetirizine 10 mg tablet 10 mg PO DAILY tab vitamin,calcium,udaztxcn-rwls-fpbss acid tablet 1 tab PO DAILY labetalol 100 mg tablet 100 mg PO BID
[2018-07-02 13:12] LABS: Hepatitis B Surface Antigen Negative (Negative)
== END 2018-07-01 11:20 | disposition home or self-care (01) ==
LOC: OBOUT 23:09 → OB 23:14
PROVIDERS: ADMIT Obstetrics & Gynecology; ATTEND Obstetrics & Gynecology

== ENCOUNTER → 2018-12-30 14:13 | Outpatient (CLI) | payer MEDICAID, SELFPAY ==
--- NOTE | 2018-12-30 14:19 | XR_ITS ---
XR foot wt bearing RT 3V HISTORY: Pain ITS.REASON: Evaluation ORDERING PHYSICIAN: Asia Pérez DPM PATIENT AGE: 38 years COMPARISON: None FINDINGS: No fracture or dislocation. No lytic or blastic change. There is normal mineralization.. The joint spaces are well-preserved. No significant degenerative/arthritic changes. No erosive changes evident. IMPRESSION: Negative, no acute finding
--- NOTE | 2018-12-30 14:19 | XR_ITS ---
XR foot wt bearing LT 3V HISTORY: Pain ITS.REASON: evaluation ORDERING PHYSICIAN: Asia Pérez DPM PATIENT AGE: 38 years COMPARISON: None FINDINGS: No fracture or dislocation. No lytic or blastic change. There is normal mineralization.. The joint spaces are well-preserved. No significant degenerative/arthritic changes. No erosive changes evident. IMPRESSION: Negative, no acute finding
== END ==
PROVIDERS: PCP Internal Medicine Adolescent Medicine; Visit Provider Podiatrist
DX: M79.671 Pain in right foot (principal)
CPT/HCPCS: 73630

== ENCOUNTER → 2020-03-01 11:58 | Outpatient (CLI) | payer OTHER, SELFPAY ==
[2020-03-01 13:13] LABS: Chloride 105 mmol/L (98-107); Potassium 4.8 mmoL/L (3.5-5.1); Sodium 138 mmol/L (136-145)
[2020-03-01 13:15] LABS: Blood Urea Nitrogen 14 mg/dl (7-17); Estimated Glomerular Filt Rate 94 ml/min (>60); GFR (African American) 114 ML/MIN (>60)
[2020-03-01 13:16] LABS: Alanine Aminotransferase 19 U/L (12-78); Albumin Level 4.3 g/dl (3.5-5.0); Albumin/Globulin Ratio 1.5 (1.1-1.8); Alkaline Phosphatase 62 U/L (38-126); Anion Gap 9.8 mEq/L (5-15); Aspartate Amino Transferase 27 U/L (14-36); Bilirubin,Total 0.6 mg/dl (0.2-1.3); Calcium 9.2 mg/dl (8.4-10.2); Carbon Dioxide 28 mmol/L (22.0-30.0); Chol/HDL Ratio 3.6 (1-3.5); Cholesterol 271 mg/dl (140-200); Globulin 2.9 g/dL (1.3-3.2); Glucose 89 mg/dl (74-100); HDL Cholesterol 75 mg/dl (40-60); Total Protein,Serum 7.2 g/dl (6.3-8.2); Triglycerides 47 mg/dl (30-150); VLDL Cholesterol 9 mg/dL (0-40)
[2020-03-01 13:27] LABS: Direct LDL Cholesterol 184.19 mg/dL (100-129)
== END ==
PROVIDERS: Visit Provider Internal Medicine Adolescent Medicine
DX: Z00.00 Encounter for general adult medical examination without abnormal findings (principal)
CPT/HCPCS: 36415; 80053; 80061

== ENCOUNTER 2020-04-15 09:00 | Outpatient (RCR) | payer OTHER, SELFPAY | END 2020-04-15 10:03 | disposition home or self-care (01) | LOC: PT 09:00 | PROVIDERS: PCP Internal Medicine Adolescent Medicine; Visit Provider Internal Medicine Adolescent Medicine | DX: S16.1XXD Strain of muscle, fascia and tendon at neck level, subsequent encounter (principal) | CPT/HCPCS: 20560; 97010; 97014; 97110; 97140; 97163; G0283 ==

== ENCOUNTER → 2020-09-22 13:25 | Outpatient (CLI) | payer OTHER, SELFPAY ==
[2020-09-22 15:35] LABS: Alanine Aminotransferase 15 U/L (12-78); Albumin Level 4.3 g/dl (3.5-5.0); Albumin/Globulin Ratio 1.6 (1.1-1.8); Alkaline Phosphatase 55 U/L (38-126); Anion Gap 8.5 mEq/L (5-15); Aspartate Amino Transferase 24 U/L (14-36); Bilirubin,Total 0.6 mg/dl (0.2-1.3); Blood Urea Nitrogen 16 mg/dl (7-17); Calcium 9.3 mg/dl (8.4-10.2); Carbon Dioxide 29 mmol/L (22.0-30.0); Chloride 104 mmol/L (98-107); Chol/HDL Ratio 3.5 (1-3.5); Cholesterol 221 mg/dl (140-200); Estimated Glomerular Filt Rate 112 ml/min (>60); GFR (African American) 136 ML/MIN (>60); Globulin 2.7 g/dL (1.3-3.2); Glucose 88 mg/dl (74-100); HDL Cholesterol 63 mg/dl (40-60); Potassium 4.5 mmoL/L (3.5-5.1); Sodium 137 mmol/L (136-145); Triglycerides 105 mg/dl (30-150); VLDL Cholesterol 21 mg/dL (0-40)
== END ==
PROVIDERS: Visit Provider Internal Medicine Adolescent Medicine
DX: E78.01 Familial hypercholesterolemia (principal)
CPT/HCPCS: 36415; 80053; 80061

== ENCOUNTER → 2020-09-29 10:54 | Outpatient (CLI) | payer OTHER, SELFPAY ==
--- NOTE | 2020-09-29 10:58 | US_ITS ---
PROCEDURE: US TRANSVAGINAL Referring Doctor: Chetan Hernandez Patient Age:39Y CLINICAL INDICATION: HX OF ENDOMETRIOSIS pelvic pain, low back pain heavy cycles COMPARISON: CT ABDPELW/O CT ABD PELVIS W/O CONTRAST from 02/05/2015 US OBTV US OB transvaginal from 12/17/2017 FINDINGS: uterus is retroverted with prominent endometrial stripe. Uterus normal size measuring 8.3 cm length x4 0.4 cm x 5.8 cm. No discrete uterine fibroid or mass- Only question slight inhomogeneous echogenicity of fundus 1 image but no discrete fibroid of identified here. . Endometrium appears thickened measuring up to 1.35 cm AP.-of this may in part reflect premenstrual status noting last LMP 09/01/2020 Adequate color Doppler flow at both ovaries There is minimal fluid the cul-de-sac.. A likely physiologic/could reflect recent cyst rupture Left ovary:. Normal Normal size.: 1.9 x 1.1 x 1.6 cm with few tiny follicular cyst Right ovary: Right ovary is larger than left but normal size, measuring 2.1 x 1.1 x 3.3 cm There is a 2.1 X 1.6 cm X 1.1 cyst at right ovary a probably reflecting dominant follicle. Other scattered small follicular cysts measuring less than 5 mm seen elsewhere about margin right ovary. . Adequate color Doppler flow at both ovaries There is minimal fluid the cul-de-sac.. A likely physiologic/could reflect recent cyst rupture IMPRESSION: Right ovary normal in size but is larger than left. There is a right ovarian cyst measures 2.1 cm. Minimal fluid in cul-de-sac Retroverted uterus; With generous endometrial stripe measuring up to 1.35 cm AP. ( would note last LMP 09/01/2020 a thus generous endometrium likely mainly reflects premenstrual status) Dictated by: Bala Tabares MD 09/29/2020 12:15 Bala Tabares MD in [place] 09/29/2020 12:15
--- NOTE | 2020-09-29 10:58 | XR_ITS ---
PROCEDURE: XR SACROILIAC JOINT BI MIN 3V Referring Doctor: Chetan Hernandez Patient Age:39Y CLINICAL INDICATION: SACROILIAC PAIN bilateral SI joint pain. No injury. COMPARISON: No exams were available for comparison FINDINGS: SI joints appear intact patent bilaterally with normal appearance. No abnormal sclerosis or erosions or findings associated with SI joints. Bones well mineralized The sacrum appears intact on these views as does the visualized osseous pelvis.. A the lytic or blastic lesions evident. The included AP view hips unremarkable. I would also note the disc spaces fairly well maintained at L4/5 and likely L5/S1. No pars defect at L5. IMPRESSION: SI joints appear normal. Unremarkable.. Included views of sacrum and osseous pelvis unremarkable Dictated by: Bala Tabares MD 09/29/2020 13:55 Bala Tabares MD in OV 09/29/2020 13:55
== END ==
PROVIDERS: PCP Internal Medicine Adolescent Medicine; Visit Provider Internal Medicine Adolescent Medicine
DX: M53.3 Sacrococcygeal disorders, not elsewhere classified (principal); Z87.42 Personal history of other diseases of the female genital tract
CPT/HCPCS: 72202; 76830

== ENCOUNTER → 2021-04-22 09:58 | Outpatient (CLI) | payer OTHER, SELFPAY ==
[2021-04-22 10:27] LABS: Basophils # 0.1 K/mm3 (0-0.2); Basophils % 1.7 % (0.1-2.0); Eosinophils # 0.1 K/mm3 (0.0-0.4); Eosinophils % 2.1 % (0.1-12.0); Hematocrit 39.1 % (37.0-47.0); Hemoglobin 13.5 g/dL (12.2-16.2); Lymphocytes # 2.1 K/mm3 (0.7-4.5); Lymphocytes % 32.2 % (10-50); Mean Corpuscular HGB Conc 34.5 g/dL (31.8-35.4); Mean Corpuscular Hemoglobin 29.8 pg (27.0-31.2); Mean Corpuscular Volume 86.3 fl (81-99); Mean Platelet Volume 7.9 fl (7.4-10.4); Monocytes # 0.4 K/mm3 (0.1-1.0); Monocytes % 5.8 % (1.7-9.3); Neutrophils # 3.8 K/mm3 (1.8-7.8); Neutrophils % 58.2 % (37.0-80.0); Platelet Count 311 K/mm3 (142-424); Red Blood Count 4.53 M/mm3 (4.20-5.40); Red Cell Distribution Width 13.1 % (11.5-17.5); White Blood Count 6.5 K/mm3 (4.8-10.8)
[2021-04-22 11:14] LABS: Alanine Aminotransferase 14 U/L (12-78); Albumin Level 4.6 g/dl (3.5-5.0); Albumin/Globulin Ratio 1.6 (1.1-1.8); Alkaline Phosphatase 62 U/L (38-126); Anion Gap 12.6 mEq/L (5-15); Aspartate Amino Transferase 22 U/L (14-36); Bilirubin,Total 0.5 mg/dl (0.2-1.3); Blood Urea Nitrogen 15 mg/dl (7-17); Calcium 9.1 mg/dl (8.4-10.2); Carbon Dioxide 26 mmol/L (22.0-30.0); Chloride 104 mmol/L (98-107); Estimated Glomerular Filt Rate 94 ml/min (>60); GFR (African American) 113 ML/MIN (>60); Globulin 2.8 g/dL (1.3-3.2); Glucose 90 mg/dl (74-100); Potassium 4.6 mmoL/L (3.5-5.1); Sodium 138 mmol/L (136-145); Total Protein,Serum 7.4 g/dl (6.3-8.2)
[2021-04-22 11:30] LABS: 25-OH Vitamin D, Total 49.7 ng/mL (30-100)
[2021-04-22 11:44] LABS: Thyroid Stimulating Hormone 1.64 uIU/mL (0.465-4.68)
[2021-04-22 12:02] LABS: Vitamin B12 463 pg/mL (239-931)
== END ==
PROVIDERS: Visit Provider Internal Medicine Adolescent Medicine
DX: R06.09 Other forms of dyspnea (principal); N83.209 Unspecified ovarian cyst, unspecified side
CPT/HCPCS: 36415; 80053; 82306; 82607; 84443; 85025

== ENCOUNTER → 2021-07-14 13:44 | Outpatient (CLI) | payer OTHER, SELFPAY ==
[2021-07-14 15:12] LABS: Chloride 104 mmol/L (98-107); Potassium 4.4 mmoL/L (3.5-5.1); Sodium 139 mmol/L (136-145)
[2021-07-14 15:14] LABS: Alanine Aminotransferase 16 U/L (12-78); Aspartate Amino Transferase 26 U/L (14-36); Blood Urea Nitrogen 12 mg/dl (7-17); Estimated Glomerular Filt Rate 94 ml/min (>60); GFR (African American) 113 ML/MIN (>60)
[2021-07-14 15:15] LABS: Albumin Level 4.6 g/dl (3.5-5.0); Albumin/Globulin Ratio 1.6 (1.1-1.8); Alkaline Phosphatase 63 U/L (38-126); Anion Gap 10.4 mEq/L (5-15); Bilirubin,Total 0.4 mg/dl (0.2-1.3); Calcium 9.9 mg/dl (8.4-10.2); Carbon Dioxide 29 mmol/L (22.0-30.0); Globulin 2.9 g/dL (1.3-3.2); Glucose 96 mg/dl (74-100); Total Protein,Serum 7.5 g/dl (6.3-8.2)
[2021-07-14 16:01] LABS: Thyroid Stimulating Hormone 1.11 uIU/mL (0.465-4.68)
== END ==
PROVIDERS: Nurse Practitioner Family; Visit Provider Family Medicine
DX: I10 Essential (primary) hypertension (principal)
CPT/HCPCS: 36415; 80053; 84443

== ENCOUNTER 2021-08-31 19:49 | Emergency (ER) | payer OTHER, SELFPAY ==
[2021-08-31 20:00] VITALS: BP 144/93; PULSE 74; RESP 18; TEMP 36.8; O2SAT 98; BMI 37.7
[2021-08-31 20:21] LABS: UTC Strep Screen (Rapid) Negative (Negative)
--- NOTE | 2021-08-31 20:36 | HMH.EDUTC ---
[facility] [place] Disposition Clinical Impression: Sinusitis Qualifiers: Sinusitis location: unspecified location Chronicity: unspecified Qualified Code(s): J32.9 - Chronic sinusitis, unspecified Disposition: Home, Self-Care Condition on Discharge: Good Instructions: Sinusitis, DI for Sinusitis, Amoxicillin and Clavulanic Acid, Prednisone Additional Instructions: *Monitor Temp, Over the counter Motrin or Tylenol as directed/as needed Tylenol every 4 hours and Motrin every 6 hours (as long as your family doctor has told you that you can take it) for fever or pain. and straight to ER if unable to lower temp less than 101.0 after medication given *Warm salt water gargles may help to soothe the throat *Throat Lozenges *Warm fluids like tea with honey may help to soothe the throat *Sleep elevated *Humidifier/Vaporizer Your throat swab was sent for culture. Those results are typically sent to your primary care. Be sure to follow up in 2-3 days with your family doctor/primary care physician if no improvement so they can review those result and treat if necessary. If you don?t have a primary care doctor, I recommend you get one but in the mean time, you will have to return to a walk in clinic Follow up IMMEDIATELY for new or worsening symptoms or no Noticeable improvement over the next 48-72 hours. 911 for difficulty breathing or swallowing You were tested for today for COVID19 your test result should be back in the next 24-48 hours, you may check your results on the [facility] My Health Portal if you have trouble logging on you may call You was given a handout with instructions for Self Quarantine and Self isolation for while you wait on test results and what to do if they are positive If you are positive the Health Dept will be contacting you also Make sure to take your Vitamins Vit. C Vit D and Zinc if you can take them Prescriptions: Amoxicillin/Potassium Clav [Augmentin 875-125 Tablet] 1 tab PO Q12H 7 Days #14 tab Transmission Status: Pending to [facility] predniSONE [Deltasone 10mg tablet] 10 mg PO BID 5 Days #10 tab Transmission Status: Pending to [facility] Fluticasone Propionate [Flonase 50mcg nasal spray 16gm] 1 spr NS DAILY #1 each Transmission Status: Pending to [facility] Referrals: Chetan Hernandez MD [Primary Care Provider] - As needed Time of Disposition: 20:53 Medical Decision Making - Derrek Inquiry Pt receiving controlled substance: No Derrek was queried for this patient: No Vital Signs: 08/31/21 20:00 Temperature 98.3 F Temperature Source Oral Pulse Rate [Right Brachial] 74 Respiratory Rate 18 Blood Pressure [Right Arm] 144/93 H Blood Pressure Mean [Right Arm] 110 Blood Pressure Source [Right Arm] Automatic Cuff Blood Pressure Position [Right Arm] Sitting 02 Sat by Pulse Oximetry 98 Oxygen Delivery Method Room Air - Lab Data Lab results reviewed: Yes: I reviewed the patient's lab results. Lab Results 08/31/21 20:15: Strep Scn Rapid Clinic Negative Orders (Tests/Meds): ORDERS Category Date Time Status Strep Screen Confirmation Routine Micro 08/31/21 20:15 Received [facility] [place] HPI - General Stated complaint: sore throat, congestion Time Seen by Provider: 08/31/21 20:36 Mode of Arrival: Ambulatory Source of Information: Patient Limitations: No Limitations Description of Symptoms (Recalled from Triage Doc. by RN): PATIENT C/O SORE THROAT, CONGESTION, AND BILATERAL EAR PAIN X 2 WEEKS HEENT Symptoms (Recalled from RN notes): Yes Resp Symptoms (Recalled from RN notes): No Skin Symptoms (Recalled from RN notes): No MS Symptoms (Recalled from RN notes): No Functional Status (Recalled from RN notes): WNL - History of Present Illness Provider Complaint: Patient states that she has been having sinus pain and pressure along with cough, scratchy throat and pressure and pain in her ears states that she has been having symptoms for several weeks and they continued to get wo
[2021-08-31 20:55] LABS: UTC Influenza A Antigen Negative (Negative); UTC Influenza B Antigen Negative (Negative)
[2021-08-31 21:00] VITALS: BP 144/93; PULSE 74; RESP 18; TEMP 36.8; O2SAT 98
== END 2021-08-31 21:04 | disposition home or self-care (01) ==
PROVIDERS: Emergency Provider Nurse Practitioner; PCP Internal Medicine Adolescent Medicine
DX: J32.9 Chronic sinusitis, unspecified (principal); J02.9 Acute pharyngitis, unspecified; F41.9 Anxiety disorder, unspecified; I10 Essential (primary) hypertension; Z20.822 Contact with and (suspected) exposure to COVID-19
CPT/HCPCS: 87804; 87880; 99203; C9803; G0463; U0003; U0005

== ENCOUNTER → 2021-09-21 14:17 | Outpatient (CLI) | payer OTHER, SELFPAY | PROVIDERS: Visit Provider Nurse Practitioner | DX: U07.1 COVID-19 (principal) | CPT/HCPCS: C9803; U0003; U0005 ==

== ENCOUNTER → 2021-09-26 13:48 | Outpatient (CLI) | payer OTHER, SELFPAY | PROVIDERS: Visit Provider Nurse Practitioner | DX: U07.1 COVID-19 (principal) | CPT/HCPCS: C9803; U0003; U0005 ==

== ENCOUNTER → 2021-10-02 12:10 | Outpatient (CLI) | payer OTHER, SELFPAY | PROVIDERS: Visit Provider Nurse Practitioner | DX: U07.1 COVID-19 (principal) | CPT/HCPCS: C9803; U0003; U0005 ==

== ENCOUNTER → 2021-10-19 13:04 | Outpatient (CLI) | payer OTHER, SELFPAY ==
--- NOTE | 2021-10-19 13:10 | XR_ITS ---
FINAL REPORT CLINICAL HISTORY: LT KNEE PAIN FINDINGS: Three views of the left knee reveal no evidence of fracture or dislocation. The bony alignment is normal. The joint spaces are preserved. There is no evidence of joint effusion. No localized soft tissue abnormality is seen. IMPRESSION: No acute abnormality identified. Reviewed, Interpreted and Dictated by Taj Alexis III, MD Transcribed by Bandar Leyva Authenticated by Taj Alexis III, MD on 10/19/2021 03:02:07 PM [facility]
== END ==
PROVIDERS: PCP Internal Medicine Adolescent Medicine; Visit Provider Internal Medicine Adolescent Medicine
DX: M25.562 Pain in left knee (principal)
CPT/HCPCS: 73562

== ENCOUNTER → 2021-12-19 13:40 | Outpatient (CLI) | payer OTHER, SELFPAY ==
[2021-12-19 14:26] LABS: Basophils # 0.2 K/mm3 (0-0.2); Basophils % 2.1 % (0.1-2.0); Eosinophils # 0.1 K/mm3 (0.0-0.4); Eosinophils % 1.3 % (0.1-12.0); Hematocrit 41.7 % (37.0-47.0); Hemoglobin 13.8 g/dL (12.2-16.2); Lymphocytes # 2.4 K/mm3 (0.7-4.5); Lymphocytes % 30.1 % (10-50); Mean Corpuscular Hemoglobin 30.6 pg (27.0-31.2); Mean Corpuscular Volume 92.8 fl (81-99); Monocytes # 0.4 K/mm3 (0.1-1.0); Monocytes % 5.2 % (1.7-9.3); Neutrophils # 4.9 K/mm3 (1.8-7.8); Neutrophils % 61.4 % (37.0-80.0); Platelet Count 323 K/mm3 (142-424); Red Cell Distribution Width 12.5 % (11.5-17.5)
[2021-12-19 14:47] LABS: Chloride 103 mmol/L (98-107); Potassium 4.3 mmoL/L (3.5-5.1); Sodium 135 mmol/L (136-145)
[2021-12-19 14:49] LABS: Blood Urea Nitrogen 17 mg/dl (7-17); Estimated Glomerular Filt Rate 93 ml/min (>60); GFR (African American) 113 ML/MIN (>60)
[2021-12-19 14:50] LABS: Alanine Aminotransferase 29 U/L (12-78); Albumin Level 4.4 g/dl (3.5-5.0); Albumin/Globulin Ratio 1.4 (1.1-1.8); Alkaline Phosphatase 50 U/L (38-126); Anion Gap 8.3 mEq/L (5-15); Aspartate Amino Transferase 34 U/L (14-36); Bilirubin,Total 0.5 mg/dl (0.2-1.3); Calcium 9.3 mg/dl (8.4-10.2); Carbon Dioxide 28 mmol/L (22.0-30.0); Cholesterol 265 mg/dl (140-200); Globulin 3.2 g/dL (1.3-3.2); Glucose 83 mg/dl (74-100); Total Protein,Serum 7.6 g/dl (6.3-8.2); Triglycerides 173 mg/dl (30-150); VLDL Cholesterol 35 mg/dL (0-40)
[2021-12-19 14:51] LABS: Chol/HDL Ratio 4.6 (1-3.5); HDL Cholesterol 57 mg/dl (40-60)
[2021-12-19 15:01] LABS: Direct LDL Cholesterol 169.52 mg/dL (100-129)
[2021-12-19 15:03] LABS: 25-OH Vitamin D, Total 60.5 ng/mL (30-100)
[2021-12-19 15:22] LABS: Thyroid Stimulating Hormone 4.76 uIU/mL (0.465-4.68)
[2021-12-19 16:54] LABS: Vitamin B12 310 pg/mL (239-931)
[2021-12-19 19:26] LABS: Free T4 (Free Thyroxine) 1.12 ng/dl (0.78-2.19)
== END ==
PROVIDERS: Visit Provider Nurse Practitioner Family
DX: E78.01 Familial hypercholesterolemia (principal); I10 Essential (primary) hypertension; Z00.00 Encounter for general adult medical examination without abnormal findings; R53.83 Other fatigue; Z68.28 Body mass index [BMI] 28.0-28.9, adult; R63.5 Abnormal weight gain; R79.89 Other specified abnormal findings of blood chemistry
CPT/HCPCS: 36415; 80053; 80061; 82306; 82607; 84439; 84443; 85025

== ENCOUNTER → 2022-04-28 14:00 | Outpatient (CLI) | payer OTHER, SELFPAY ==
--- NOTE | 2022-04-28 14:04 | US_ITS ---
FINAL REPORT CLINICAL HISTORY: CYST OF OVARY FINDINGS: There is a 9 mm focus of abnormal echogenicity at the uterine fundus in or adjacent to the endometrium of uncertain etiology. Findings could represent endometrial polyp. The uterus is lobular, likely due to fibroids, stable from prior exam. Endometrium measures 9 mm. The ovaries measure 2.4 cm on the right and 2.1 cm on the left and are unremarkable. No ovarian cyst is seen. No free fluid in the pelvis. IMPRESSION: 9 mm focus of abnormal echogenicity at the uterine fundus in or adjacent to the endometrium which could represent endometrial polyp. Reviewed, Interpreted and Dictated by Taj Alexis III, MD Transcribed by Evita Palacio Authenticated and . [facility]
== END ==
PROVIDERS: PCP Internal Medicine Adolescent Medicine; Visit Provider Internal Medicine Adolescent Medicine
DX: N83.209 Unspecified ovarian cyst, unspecified side (principal); Z87.42 Personal history of other diseases of the female genital tract
CPT/HCPCS: 76830

== ENCOUNTER → 2022-05-29 13:07 | Outpatient (CLI) | payer OTHER, SELFPAY ==
--- NOTE | 2022-05-29 13:11 | US_ITS ---
FINAL REPORT CLINICAL HISTORY: pelvic pain FINDINGS: Transvaginal sonographic images of the pelvis were obtained. The uterus is retroverted and measures 8.2 x 5.2 x 4.1 cm. The endometrium measures 12 mm, which is at the upper limits of normal for age. No uterine mass is identified. The right ovary measures 2.9 cm in length and left ovary measures 4.0 cm in length. Normal blood flow seen to the ovaries. There is a dominant benign follicular cyst measuring up to 22 mm in the left ovary. There is physiologic free fluid. IMPRESSION: 1. Benign-appearing dominant follicular left ovarian cyst. 2. Normal appearing right ovary. Reviewed, Interpreted and Dictated by Delicia Devine MD Transcribed by Jina Oro Authenticated and [facility]
== END ==
PROVIDERS: PCP Internal Medicine Adolescent Medicine; Visit Provider Obstetrics & Gynecology
DX: R10.2 Pelvic and perineal pain (principal)
CPT/HCPCS: 76830

== ENCOUNTER → 2022-05-30 18:38 | Outpatient (CLI) | payer OTHER, SELFPAY ==
[2022-05-30 19:02] LABS: MANUAL DIFFERENTIAL MANUAL DIFFERENTIAL (MANUAL DIFF)
[2022-05-30 19:22] LABS: Basophils # 0.2 K/mm3 (0-0.2); Basophils % 1.7 % (0.1-2.0); Chloride 101 mmol/L (98-107); Eosinophils # 0.2 K/mm3 (0.0-0.4); Eosinophils % 1.8 % (0.1-12.0); Hematocrit 37.5 % (37.0-47.0); Hemoglobin 13.4 g/dL (12.2-16.2); Lymphocytes # 3.1 K/mm3 (0.7-4.5); Lymphocytes % 32.4 % (10-50); Mean Corpuscular HGB Conc 35.8 g/dL (31.8-35.4); Mean Corpuscular Hemoglobin 32.6 pg (27.0-31.2); Mean Corpuscular Volume 91.2 fl (81-99); Mean Platelet Volume 7.7 fl (7.4-10.4); Monocytes # 0.5 K/mm3 (0.1-1.0); Neutrophils # 5.7 K/mm3 (1.8-7.8); Platelet Count 335 K/mm3 (142-424); Potassium 3.9 mmoL/L (3.5-5.1); Red Blood Count 4.11 M/mm3 (4.20-5.40); Red Cell Distribution Width 12.5 % (11.5-17.5); Sodium 137 mmol/L (136-145); White Blood Count 9.7 K/mm3 (4.8-10.8)
[2022-05-30 19:25] LABS: Alanine Aminotransferase 29 U/L (12-78); Albumin Level 4.6 g/dl (3.5-5.0); Albumin/Globulin Ratio 1.4 (1.1-1.8); Alkaline Phosphatase 75 U/L (38-126); Anion Gap 12.9 mEq/L (5-15); Aspartate Amino Transferase 33 U/L (14-36); Blood Urea Nitrogen 17 mg/dl (7-17); Calcium 9.2 mg/dl (8.4-10.2); Carbon Dioxide 27 mmol/L (22.0-30.0); Estimated Glomerular Filt Rate 93 ml/min (>60); GFR (African American) 113 ML/MIN (>60); Globulin 3.2 g/dL (1.3-3.2); Glucose 106 mg/dl (74-100); Total Protein,Serum 7.8 g/dl (6.3-8.2)
[2022-05-30 19:26] LABS: Bilirubin,Total < 0.1 mg/dl (0.2-1.3)
[2022-05-30 20:56] LABS: Eosinophils % 1 % (0-3); Lymphocytes % 41 % (10-50); Monocytes % 1 % (2-9); Neutrophils % 57 % (42-76); Total Cells Counted 100
[2022-05-30 20:57] LABS: Platelet Estimate Normal; RBC Morphology Normal
== END ==
PROVIDERS: PCP Internal Medicine Adolescent Medicine; Visit Provider Obstetrics & Gynecology
DX: R10.2 Pelvic and perineal pain (principal); R10.9 Unspecified abdominal pain
CPT/HCPCS: 36415; 80053; 85007; 85014; 85018; 85048; 85049

== ENCOUNTER → 2022-10-23 16:15 | Outpatient (CLI) | payer OTHER, SELFPAY ==
--- NOTE | 2022-10-23 16:15 | MM_ITS ---
PROCEDURE INFORMATION: Exam: MG Bilateral Screening 3D Mammography Exam date and time: 10/23/2022 4:09 PM Age: 42 years old Clinical indication: Screening mammogram TECHNIQUE: Imaging protocol: Bilateral Screening tomosynthesis and 2D mammography including computer-aided detection (CAD) when performed. COMPARISON: No relevant prior studies available. FINDINGS: MAMMOGRAPHY: Breast composition: There are scattered areas of fibroglandular density. Mass: None. Architectural distortion: No new or suspicious architectural distortion. Calcifications: No new or suspicious calcifications are present Asymmetric density: No new or suspicious asymmetric density is present Skin thickening: None. Axillary adenopathy: None. IMPRESSION: No mammographic evidence of malignancy. Recommend annual screening mammography unless otherwise clinically indicated. ASSESSMENT: BI-RADS category 1: Negative
== END ==
PROVIDERS: PCP Internal Medicine Adolescent Medicine; Visit Provider Obstetrics & Gynecology
DX: Z12.31 Encounter for screening mammogram for malignant neoplasm of breast (principal)
CPT/HCPCS: 77063; 77067

== ENCOUNTER → 2023-06-27 09:46 | Outpatient (CLI) | payer OTHER, SELFPAY ==
[2023-06-27 09:56] LABS: Microscopic, Urine URINE MICROSCOPIC (MICROSCOPIC)
[2023-06-27 10:11] LABS: Appearance,Urine CLEAR (Clear); Bilirubin,Urine Negative (Negative); Blood, Urine Negative (Negative); Color,Urine YELLOW (Yellow); Glucose,Urine (UA) Negative (Negative); Ketones,Urine Negative (Negative); Leukocyte Esterase,Urine Negative (Negative); Nitrate,Urine Negative (Negative); PH,Urine 8.5 (5.0-8.5); Protein,Urine Negative (Negative); Specific Gravity, Urine 1.015 (1.005-1.030); Urobilinogen,Urine 0.2 EU/dl (0.2)
[2023-06-27 10:13] LABS: Basophils # 0.1 K/mm3 (0-0.2); Basophils % 0.9 % (0.1-2.0); Eosinophils # 0.1 K/mm3 (0.0-0.4); Eosinophils % 1.9 % (0.1-12.0); Hematocrit 38.4 % (37.0-47.0); Hemoglobin 13.8 g/dL (12.2-16.2); Lymphocytes # 2.4 K/mm3 (0.7-4.5); Lymphocytes % 36.8 % (10-50); Mean Corpuscular Hemoglobin 32.1 pg (27.0-31.2); Mean Corpuscular Volume 89.3 fl (81-99); Mean Platelet Volume 8.3 fl (7.4-10.4); Monocytes # 0.4 K/mm3 (0.1-1.0); Monocytes % 5.9 % (1.7-9.3); Neutrophils # 3.6 K/mm3 (1.8-7.8); Neutrophils % 54.5 % (37.0-80.0); Platelet Count 346 K/mm3 (142-424); Red Cell Distribution Width 12.7 % (11.5-17.5); White Blood Count 6.5 K/mm3 (4.8-10.8)
[2023-06-27 10:27] LABS: Chloride 103 mmol/L (98-107); Potassium 4.6 mmoL/L (3.5-5.1); Sodium 137 mmol/L (136-145)
[2023-06-27 10:29] LABS: Blood Urea Nitrogen 15 mg/dl (7-17); Estimated Glomerular Filt Rate 79 ml/min (>60)
[2023-06-27 10:30] LABS: Alanine Aminotransferase 22 U/L (12-78); Albumin Level 4.5 g/dl (3.5-5.0); Albumin/Globulin Ratio 1.5 (1.1-1.8); Alkaline Phosphatase 68 U/L (38-126); Anion Gap 8.6 mEq/L (5-15); Aspartate Amino Transferase 29 U/L (14-36); Bilirubin,Total 0.4 mg/dl (0.2-1.3); Carbon Dioxide 30 mmol/L (22.0-30.0); GFR (African American) 96 ML/MIN (>60); Total Protein,Serum 7.5 g/dl (6.3-8.2)
[2023-06-27 10:31] LABS: Calcium 9.2 mg/dl (8.4-10.2); Glucose 104 mg/dl (74-100)
--- NOTE | 2023-06-27 14:26 | CT_ITS ---
FINAL REPORT CLINICAL HISTORY: RIGHT FLANK PAIN COMPARISON: None FINDINGS: CT OF THE ABDOMEN AND PELVIS WITH CONTRAST Axial CT images of the abdomen and pelvis were obtained after the administration of oral and iv contrast. Coronal and sagittal reformatted images were also obtained and reviewed.This study was performed with techniques to keep radiation doses as low as reasonably achievable (ALARA). Individualized dose reduction techniques using automated exposure control or adjustment of mA and/or kV according to the patient's size were employed. Abdomen: The lung bases are clear. The heart is normal in size. There is a small 6 mm mass in the dome of the liver, left lobe, consistent with a cyst. No other hepatic abnormality is identified and no biliary ductal dilatation is seen. The spleen is unremarkable. No adrenal mass is present. The pancreas has an unremarkable appearance. There are small bilateral renal cysts present, without evidence of a renal stone. The kidneys are otherwise normal, without evidence of mass or hydronephrosis. The aorta is normal in caliber. There is no free fluid or adenopathy. No mass or abnormal fluid collection is seen. Pelvis: The appendix is normal in appearance. The urinary bladder is unremarkable. There is a small focal area of fat with mild adjacent inflammation in the distal descending colon, worrisome for a small focus of epiploic appendagitis. There is no evidence of mass or adenopathy. There is no evidence of bowel obstruction. There is an 18 mm probable cyst in the left ovary. IMPRESSION: Small focus of fat with mild inflammation adjacent to the distal descending colon worrisome for epiploic appendagitis. Small bilateral renal cysts without evidence of stone or hydronephrosis. 18 mm probable cyst left ovary. 6 mm mass left liver dome consistent with a cyst. Reviewed, Interpreted and Dictated by Taj Alexis III, MD Transcribed by Liliana Zhao Authenticated and [facility]
== END ==
PROVIDERS: PCP Internal Medicine Adolescent Medicine; Visit Provider Internal Medicine Adolescent Medicine
DX: R10.9 Unspecified abdominal pain (principal); R82.90 Unspecified abnormal findings in urine; R50.9 Fever, unspecified; N20.0 Calculus of kidney; B96.89 Other specified bacterial agents as the cause of diseases classified elsewhere
CPT/HCPCS: 36415; 74177; 80053; 81001; 84443; 85025; 87086; Q9967

== ENCOUNTER 2023-06-28 18:52 | Emergency (ER) | payer OTHER, SELFPAY ==
[2023-06-28 18:53] VITALS: BP 162/104; PULSE 68; RESP 16; TEMP 37.1; O2SAT 98; BMI 28.3
[2023-06-28 19:00] VITALS: BP 162/104; PULSE 63; RESP 16; O2SAT 100
[2023-06-28 19:30] VITALS: BP 135/93; PULSE 69; RESP 16; O2SAT 100
--- NOTE | 2023-06-28 20:05 | HMH.EDGENADL ---
Discharge Plan Disposition Patient Disposition: Home, Self-Care Prescriptions Prescriptions: No Action metoprolol succinate 50 MG tablet extended release 24 hr 50 mg PO DAILY lisinopril-hydrochlorothiazide 1 EACH tablet 1 tab PO DAILY Referrals Follow up/Referrals: Chetan Hernandez MD [Primary Care Provider] - See instructions Activity Restrictions/Add. Instructions Additional Instructions/Restrictions: Your CT scan today was consistent with epiploic appendagitis. No evidence of appendicitis or anything that would require acute surgical intervention. Given the fact that you have had chronic symptoms and slight bit of inflammatory changes on your CT scan around your colon I would suggest that you follow-up with a unix engineer to entertain more chronic conditions such as Crohn's disease etc. I would recommend that you get an outpatient colonoscopy to further evaluate this and discussed this with the unix engineer. Please follow-up with Dr. Ru Lemus in [place]. Clinical Impressions Clinical Impression: Epiploic appendagitis Discharge ED Provider: Bia Rodriguez General Adult HPI General Chief complaint: PAIN Stated complaint: sent by Dr. Hernandez CT 06/27 appendix Time Seen by Provider: 06/28/23 19:39 Mode of Arrival: Ambulatory Source of Information: Patient Limitations: No Limitations Description of Symptoms (Recalled from ER Triage Doc. by RN): Presents to ED per instruction for concerns with appendix after a CT w/ contrast. Patient reports she has been having right sided flank pain x 1 year. Patient reports she had a hysterectomy in February of this year. Since surgery patient has had reoccurent UTI's (2-3). Patient states for the past 2 weeks she has been Rx'ing herself Amoxicillin 875mg x 2 weeks. History of Present Illness HPI narrative: Patient is a 42-year-old female with chronic abdominal pain presenting today after being told to come in by primary care doctor. She has had multiple evaluations including multiple ultrasounds she actually had a hysterectomy earlier this year and has had persistent right-sided abdominal pain. She states she was feeling poorly just a few days ago and had a urinary tract infection symptoms which have since resolved and she treated herself with amoxicillin at home. Tmax was 100 she never had a fever greater than 100.4. She states that those symptoms have since resolved. She had some blood work and a CAT scan done by Dr. Muro yesterday. The CAT scan demonstrated findings consistent with epiploic appendagitis. There is no evidence of any appendicitis. Dr. Muro called the patient to come in for further evaluation. The patient denies any significant abdominal pain right now nothing acute outside of what has been chronic. Her last colonoscopy was in 2007. Related Data Home Medications Medication Instructions Recorded Confirmed lisinopril 10 1 tab PO DAILY Hypertension 08/31/21 10/09/22 mg-hydrochlorothiazide 12.5 mg tablet metoprolol succinate 50 mg 50 mg PO DAILY Hypertension 08/31/21 10/09/22 tablet,extended release 24 hr Allergies Allergy/AdvReac Type Severity Reaction Status Date / Time No Known Allergies Allergy Verified 10/09/22 15:40 [facility] Disclaimer: The information contained in this section may have been updated after the patient was seen, as this information can be updated by other users. Medical History H/O nephrolithotomy with removal of calculi History of kidney stones History of ovarian cyst Hypertension Vaginal burning Vaginal discharge Vaginal wall cyst Surgical History History of colonoscopy S/P dilation and curettage Family History Other Cancer Diabetes Hyperlipidemia Hypertension Substance abuse Social History (Reviewed 10/09
[2023-06-28 20:08] VITALS: BP 134/79; PULSE 61; RESP 16; TEMP 37.1; O2SAT 100
== END 2023-06-28 20:10 | disposition home or self-care (01) ==
PROVIDERS: Emergency Provider Student in an Organized Health Care Education/Training Program; PCP Internal Medicine Adolescent Medicine
DX: K63.89 Other specified diseases of intestine (principal); R10.9 Unspecified abdominal pain; I10 Essential (primary) hypertension
CPT/HCPCS: 99283

== ENCOUNTER 2023-10-10 18:05 | Outpatient (CLI) | payer OTHER, SELFPAY | END 2023-10-10 23:59 | LOC: LAB.DROPOF 18:06 | PROVIDERS: PCP Nurse Practitioner Family; Visit Provider Nurse Practitioner Family | DX: R07.0 Pain in throat (principal); Z20.818 Contact with and (suspected) exposure to other bacterial communicable diseases; R50.9 Fever, unspecified; R09.81 Nasal congestion | CPT/HCPCS: 87070 ==

== ENCOUNTER 2023-11-05 18:49 | Outpatient (CLI) | payer OTHER, SELFPAY ==
[2023-11-05 19:21] LABS: Chloride 107 mmol/L (98-107); Potassium 4.8 mmoL/L (3.5-5.1); Sodium 138 mmol/L (136-145)
[2023-11-05 19:23] LABS: Alanine Aminotransferase 18 U/L (12-78); Aspartate Amino Transferase 30 U/L (14-36); Blood Urea Nitrogen 14 mg/dl (7-17); Estimated Glomerular Filt Rate 79 ml/min (>60); GFR (African American) 96 ML/MIN (>60)
[2023-11-05 19:24] LABS: Albumin Level 3.9 g/dl (3.5-5.0); Albumin/Globulin Ratio 1.3 (1.1-1.8); Alkaline Phosphatase 76 U/L (38-126); Anion Gap 5.8 mEq/L (5-15); Basophils # 0.1 K/mm3 (0-0.2); Basophils % 1.3 % (0.1-2.0); Bilirubin,Total 0.5 mg/dl (0.2-1.3); Calcium 9.4 mg/dl (8.4-10.2); Carbon Dioxide 30 mmol/L (22.0-30.0); Chol/HDL Ratio 6.5 (1-3.5); Cholesterol 313 mg/dl (140-200); Eosinophils # 0.3 K/mm3 (0.0-0.4); Eosinophils % 4.1 % (0.1-12.0); Globulin 2.9 g/dL (1.3-3.2); Glucose 92 mg/dl (74-100); HDL Cholesterol 48 mg/dl (40-60); Hemoglobin 12.8 g/dL (12.2-16.2); Iron 71 ug/dL (37-170); Lymphocytes % 33.3 % (10-50); Mean Corpuscular HGB Conc 31.9 g/dL (31.8-35.4); Mean Corpuscular Hemoglobin 30.3 pg (27.0-31.2); Mean Corpuscular Volume 94.9 fl (81-99); Mean Platelet Volume 9.7 fl (7.4-10.4); Monocytes # 0.4 K/mm3 (0.1-1.0); Monocytes % 6.9 % (1.7-9.3); Neutrophils # 3.3 K/mm3 (1.8-7.8); Neutrophils % 54.3 % (37.0-80.0); Platelet Count 352 K/mm3 (142-424); Red Blood Count 4.21 M/mm3 (4.20-5.40); Red Cell Distribution Width 12.7 % (11.5-17.5); Total Protein,Serum 6.8 g/dl (6.3-8.2); Triglycerides 99 mg/dl (30-150); VLDL Cholesterol 20 mg/dL (0-40)
[2023-11-05 19:34] LABS: Total Iron Binding Capacity 356 ug/dL (265-497)
[2023-11-05 19:35] LABS: Direct LDL Cholesterol 187.96 mg/dL (100-129)
[2023-11-05 19:44] LABS: 25-OH Vitamin D, Total 51.8 ng/mL (30-100); Free T4 (Free Thyroxine) 1.06 ng/dl (0.78-2.19)
[2023-11-05 19:53] LABS: Hemoglobin A1C 5.5 % (4.0-6.0)
[2023-11-05 20:50] LABS: Vitamin B12 482 pg/mL (239-931)
[2023-11-05 21:04] LABS: Folate 8.97 ng/mL
[2023-11-07 08:18] LABS: Estradiol 71.1 pg/mL (.); FSH 8.2 mIU/mL (.); LH 6.8 mIU/mL (.)
== END 2023-11-05 23:59 ==
LOC: LAB 18:51
PROVIDERS: PCP Student in an Organized Health Care Education/Training Program; Visit Provider Student in an Organized Health Care Education/Training Program
DX: I10 Essential (primary) hypertension (principal); R23.2 Flushing; R53.83 Other fatigue; Z13.21 Encounter for screening for nutritional disorder; Z13.1 Encounter for screening for diabetes mellitus; Z13.29 Encounter for screening for other suspected endocrine disorder; Z79.899 Other long term (current) drug therapy
CPT/HCPCS: 80053; 80061; 82306; 82607; 82670; 82728; 82746; 83001; 83002; 83036; 83540; 83550; 84439; 84443; 85025

== ENCOUNTER 2023-11-09 14:30 | Outpatient (CLI) | payer OTHER, SELFPAY ==
--- NOTE | 2023-11-09 14:39 | MM_ITS ---
PROCEDURE INFORMATION: Exam: MG Bilateral Screening 3D Mammography Exam date and time: 11/09/2023 2:36 PM Age: 43 years old Clinical indication: Screening examination TECHNIQUE: Imaging protocol: Bilateral Screening tomosynthesis and 2D mammography including computer-aided detection (CAD) when performed. COMPARISON: MG MM DIG SCREENING MAMM BI W/CAD 10/23/2022 4:09 PM FINDINGS: MAMMOGRAPHY: Breast composition: There are scattered areas of fibroglandular density. Mass: None. Architectural distortion: None. Calcifications: No suspicious calcifications. Asymmetric density: None. Skin thickening: None. Axillary adenopathy: None. IMPRESSION: No mammographic evidence of malignancy. Annual screening is recommended unless otherwise clinically indicated. ASSESSMENT: BI-RADS Category 1: Negative
== END 2023-11-09 23:59 ==
LOC: RAD 14:31
PROVIDERS: PCP Internal Medicine Adolescent Medicine; Visit Provider Student in an Organized Health Care Education/Training Program
DX: Z12.31 Encounter for screening mammogram for malignant neoplasm of breast (principal)
CPT/HCPCS: 77063; 77067

== ENCOUNTER 2024-12-30 15:09 | Outpatient (CLI) | payer OTHER, SELFPAY ==
--- OUTSIDE RECORDS SUMMARY | 2024-12-30 15:12 | XMS_ITS | Data Portability ---
Author Organization [place] - SHELBY Gillis LINDEN CLOSED Address [address] [facility] [address] [place] [address] Care Team Providers [facility] Chief Financial Officer Name Role Phone JACKIE LUCIANO Primary Care Provider Assessment No assessment recorded. Plan of Treatment Reminders Order Date Submit Date Provider Last Modified By Organization Details Last Modified Time Details Appointments None recorded. Lab urinalysi s panel, auto [address] Extended Services With [facility], [address], [address], [address], 3 09:55:11 urinalysi s panel, auto 2022 023 [facility] Extended Services With [facility], [address], [address], [place], [address], 3 19:08:24 kidney stone analysis [address] [facility], [address] [place] [address], [address], 3 16:41:46 urinalysi s panel, auto 2021 022 [facility] Extended Services With [facility], [address], [address], [place], [address], 2 16:59:17 Referral None recorded. Procedures None recorded. Surgeries None recorded. Imaging US, kidney [address] [facility], [address], [place], [address], 4 15:59:42 XR, kidney + ureter + bladder [address] [facility], [address], [place], [address], 4 15:59:42 CT, abdomen + pelvis, w/o contrast - CT ABD/PEL W/O CONTRASTP LEASE CONTACT LISSETTE RECINOS AT # [id number] , effective 2 - 2, for procedure code [id number] 2021 022 [facility] (Centralized Scheduling), [address] [facility], [place], [address], 18:02:52 Medication Orders None recorded. Patient TargetsNo targets recorded. Patient Instructions Encounter Date Encounter Id Patient Instructions Last Modified By Organization Details Last Modified Time 05/29/2022 [id number] learning about healthy weight [email or web address] Not available 05/31/2022 16:59:17 05/21/2023 [id number] See notes above and in HPI Return to review results of MARY and KUB Return sooner if needed Pt understands and agrees with care plan. No further questions or concerns at this time [email or web address] Not available 05/21/2023 11:22:33 Reason for Referral None Reported. Results Created Date Observation Date Name Description Value Unit Range Abnormal Flag Note LastModifiedBy Organization Detail LastModifiedTime 05/31/2005/31/2022 urina lysis panel , auto Unknown Analyte Clean Catch Not Available [facility] [place] Extended Services With [facility] [address] [facility] [address], [place], [address], 05/31/2022 15:21:27 05/31/20 22 05/31/2022 urina lysis panel , auto Unknown Analyte Yellow Not Available Critical access hospital [facility] Extended Services With [facility] [address], [place], [address], 05/31/2022 15:21:27 05/31/20 22 05/31/2022 urina lysis panel , auto Unknown Analyte Clear Not Available Critical access hospital [facility] [place] Extended Services With [facility] [address], [place], [address], 05/31/2022 15:21:27 05/31/20 22 05/31/2022 urina lysis panel , auto Unknown Analyte 1.015 Not Available [facility] Extended Services With [facility] [address], [place], [address], 05/31/2022 15:21:27 05/31/20 22 05/31/2022 urina lysis panel , auto Unknown Analyte 1.003- 1.035 Not Available [facility] [place] Extended Services With [facility] [address], [place], [address], 05/31/2022 15:21:27 05/31/20 22 05/31/2022 urina lysis panel , auto Unknown Analyte 7.0 Not Available [facility] [place] Extended Services With [facility] [address], [place], [address], 05/31/2022 15:21:27 05/31/20 22 05/31/2022 urina lysis panel , auto Unknown Analyte 5.0-8. 0 Not Available [facility] [place] Extended Services With [facility] [address], [place], [address], 05/31/2022 15:21:27 05/31/20 22 05/31/2022 urina lysis panel , auto Unknown Analyte 25 Joni/ul Trace Not Available [facility] [place] Extended Services With [facility] [address], [place], [address], 05/31/2022 15:21:27 05/31/20 22 05/31/2022 urina lysis panel , auto Unknown Analyte Negati ve Not Available [facility] Extended Services With [facility] [address], [place], [address], 05/31/2022 15:21:27 05/31/20 22 05/31/2022 urina lysis panel , auto Unknown Analyte Negati ve Not Available [facility] [place] Extended Services With [facility] [address], [place], [address], 05/31/2022 15:21:27 05/31/20 22 05/31/2022 urina lysis panel , auto Unknown Analyte Negati ve Not Available [facility] [place] Extended Services With [facility] [address], [place], [address], 05/31/2022 15:21:27 05/31/20 22 05/31/2022 urina lysis panel , auto Unknown Analyte Negati ve Not Available [facility] [place] Extended Services With [facility] [address], [place], [address], 05/31/2022 15:21:27 05/31/20 22 05/31/2022 urina lysis panel , auto Unknown Analyte Negati ve Not Available [facility] [place] Extended Services With [facility] [address], [place], [address], 05/31/2022 15:21:27 05/31/20 22 05/31/2022 urina lysis panel , auto Unknown Analyte Normal Not Available [facility] Extended Services With [facility] [address], [place], [address], 05/31/2022 15:21:27 05/31/20 22 05/31/2022 urina lysis panel , auto Unknown Analyte Normal Not Available [facility] Extended Services With [facility] [address], [place], [address], 05/31/2022 15:21:27 05/31/20 22 05/31/2022 urina lysis panel , auto Unknown Analyte Negati ve Not Available [facility] Extended Services With [facility] [address], [place], [address], 05/31/2022 15:21:27 05/31/20 22 05/31/2022 urina lysis panel , auto Unknown Analyte Negati ve Not Available [facility] Extended Services With [facility] [address], [place], [address], 05/31/2022 15:21:27 05/31/20 22 05/31/2022 urina lysis panel , auto Unknown Analyte Normal Not Available [facility] Extended Services With [facility] [address], [place], [address], 05/31/2022 15:21:27 05/31/20 22 05/31/2022 urina lysis panel , auto Unknown Analyte Normal 1 mg/dl Not Available [facility] Extended [facility] With [facility] [address], [place], [address], 05/31/2022 15:21:27 05/31/20 22 05/31/2022 urina lysis panel , auto Unknown Analyte Negati ve Not Available [facility] Extended Services With [facility] [address], [place], [address], 05/31/2022 15:21:27 05/31/20 22 05/31/2022 urina lysis panel , auto Unknown Analyte Negati ve Not Available [facility] Extended Services With [facility] [address], [place], [address], 05/31/2022 15:21:27 05/31/20 22 05/31/2022 urina lysis panel , auto Unknown Analyte Negati ve Not Available [facility] Extended Services With [facility] [address], [place], [address], 05/31/2022 15:21:27 05/31/20 22 05/31/2022 urina lysis panel , auto Unknown Analyte Negati ve Not Available [facility] Extended Services With [facility] [address], [place], [address], 05/31/2022 15:21:27 01/02/20 23 01/01/2023 urina lysis panel , auto Unknown Analyte Clean Catch Not Available [facility] Extended Services With [facility] [address], [place], [address], 01/01/2023 15:44:49 01/02/20 23 01/01/2023 urina lysis panel , auto Unknown Analyte Yellow Not Available [facility] Extended Services With [facility] [address], [place], [address], 01/01/2023 15:44:49 01/02/20 23 01/01/2023 urina lysis panel , auto Unknown Analyte Clear Not Available [facility] Extended Services With [facility] [address], [place], [address], 01/01/2023 15:44:49 01/02/20 23 01/01/2023 urina lysis panel , auto Unknown Analyte 1.015 Not Available [facility] Extended Services With [facility] [address], [place], [address], 01/01/2023 15:44:49 01/02/20 23 01/01/2023 urina lysis panel , auto Unknown Analyte 1.003- 1.035 Not Available [facility] Extended Services With [facility] [address], [place], [address], 01/01/2023 15:44:49 01/02/20 23 01/01/2023 urina lysis panel , auto Unknown Analyte 7.0 Not Available [facility] Extended Services With [facility] [address], [place], [address], 01/01/2023 15:44:49 01/02/20 23 01/01/2023 urina lysis panel , auto Unknown Analyte 5.0-8. 0 Not Available [facility] Extended Services With [facility] [address], [place], [address], 01/01/2023 15:44:49 01/02/20 23 01/01/2023 urina lysis panel , auto Unknown Analyte Negati ve Not Available [facility] Extended Services With [facility] [address], [place], [address], 01/01/2023 15:44:49 01/02/20 23 01/01/2023 urina lysis panel , auto Unknown Analyte Negati ve Not Available [facility] Extended Services With [facility] [address], [place], [address], 01/01/2023 15:44:49 01/02/20 23 01/01/2023 urina lysis panel , auto Unknown Analyte Negati ve Not Available [facility] [place] Extended Services With [facility] [address], [place], [address], 01/01/2023 15:44:49 01/02/20 23 01/01/2023 urina lysis panel , auto Unknown Analyte Negati ve Not Available [facility] Extended Services With [facility] [address], [place], [address], 01/01/2023 15:44:49 01/02/20 23 01/01/2023 urina lysis panel , auto Unknown Analyte Negati ve Not Available [facility] Extended Services With [facility] [address], [place], [address], 01/01/2023 15:44:49 01/02/20 23 01/01/2023 urina lysis panel , auto Unknown Analyte Negati ve Not Available [facility] Extended Services With [facility] [address], [place], [address], 01/01/2023 15:44:49 01/02/20 23 01/01/2023 urina lysis panel , auto Unknown Analyte Normal Not Available [facility] Extended Services With [facility] [address], [place], [address], 01/01/2023 15:44:49 01/02/20 23 01/01/2023 urina lysis panel , auto Unknown Analyte Normal Not Available [facility] Extended Services With [place] [address], [place], [address], 01/01/2023 15:44:49 01/02/20 23 01/01/2023 urina lysis panel , auto Unknown Analyte Negati ve Not Available [facility] Extended Services With [facility] [address], [place], [address], 01/01/2023 15:44:49 01/02/20 23 01/01/2023 urina lysis panel , auto Unknown Analyte Negati ve Not Available [facility] Extended Services With [facility] [address], [place], [address], 01/01/2023 15:44:49 01/02/20 23 01/01/2023 urina lysis panel , auto Unknown Analyte Normal Not Available [facility] Extended Services With [facility] [address], [place], [address], 01/01/2023 15:44:49 01/02/20 23 01/01/2023 urina lysis panel , auto Unknown Analyte Normal 1 mg/dl Not Available [facility] Extended Services With [facility] [address], [place], [address], 01/01/2023 15:44:49 01/02/20 23 01/01/2023 urina lysis panel , auto Unknown Analyte Negati ve Not Available [facility] Extended Services With [facility] [address], [place], [address], 01/01/2023 15:44:49 01/02/20 23 01/01/2023 urina lysis panel , auto Unknown Analyte Negati ve Not Available [facility] [place] Extended Services With [facility] [address], [place], [address], 01/01/2023 15:44:49 01/02/20 23 01/01/2023 urina lysis panel , auto Unknown Analyte Negati ve Not Available [facility] Extended Services With [facility] [address], [place], [address], 01/01/2023 15:44:49 01/02/20 23 01/01/2023 urina lysis panel , auto Unknown Analyte Negati ve Not Available [facility] [place] Extended Services With [facility] [address], [place], [address], 01/01/2023 15:44:49 05/21/20 23 05/21/2023 urina lysis panel , auto Unknown Analyte Clean Catch Not Available [facility] [place] Extended Services With [facility] [address], [place], [address], 05/21/2023 09:30:51 05/21/20 23 05/21/2023 urina lysis panel , auto Unknown Analyte Yellow Not Available [facility] Extended Services With [facility] [address], [place], [address], 05/21/2023 09:30:51 05/21/20 23 05/21/2023 urina lysis panel , auto Unknown Analyte Clear Not Available Critical access hospital [facility] [place] Extended [facility] With [facility] [address], [place], [address], 05/21/2023 09:30:51 05/21/20 23 05/21/2023 urina lysis panel , auto Unknown Analyte 1.015 Not Available [facility] Extended [facility] With [facility] [address], [place], [address], 05/21/2023 09:30:51 05/21/20 23 05/21/2023 urina lysis panel , auto Unknown Analyte 6.5 Not Available Critical access hospital [facility] Extended [facility] With [facility] [address], [place], [address], 05/21/2023 09:30:51 05/21/20 23 05/21/2023 urina lysis panel , auto Unknown Analyte 75 Joni/ul (+) Not Available [facility] Extended Services With [facility] [address], [place], [address], 05/21/2023 09:30:51 05/21/20 23 05/21/2023 urina lysis panel , auto Unknown Analyte Negati ve Not Available [facility] Extended Services With [facility] [address], [place], [address], 05/21/2023 09:30:51 05/21/20 23 05/21/2023 urina lysis panel , auto Unknown Analyte Trace Not Available [facility] Extended Services With [facility] [address], [place], [address], 05/21/2023 09:30:51 05/21/20 23 05/21/2023 urina lysis panel , auto Unknown Analyte Normal Not Available [facility] Extended Services With [facility] [address], [place], [address], 05/21/2023 09:30:51 05/21/20 23 05/21/2023 urina lysis panel , auto Unknown Analyte Negati ve Not Available [facility] [address], [place], [address], 05/21/2023 09:30:51 05/21/20 23 05/21/2023 urina lysis panel , auto Unknown Analyte Normal Not Available Critical access hospital [facility] [place] Extended Services With [facility] [address] [facility] [address], [place], [address], 05/21/2023 09:30:51 05/21/20 23 05/21/2023 urina lysis panel , auto Unknown Analyte Negati ve Not Available [facility] Extended Services With [facility] [address] [facility] [address], [place], [address], 05/21/2023 09:30:51 05/21/20 23 05/21/2023 urina lysis panel , auto Unknown Analyte Negati ve Not Available [facility] Extended Services With [facility] [address] [facility] [address], [place], [address], 05/21/2023 09:30:51 05/22/20 23 05/24/2023 URINE CULTU RE urine culture COLON Y COUNT : 10,00 0 - 100,0 00 CFU/M L Three or more isola courtney; mixed skin golden . Not Available [facility] [address] [facility], [place], [address], 05/24/2023 15:07:50 06/10/20 22 06/09/2022 CT, abdom en + pelvi s, w/o contr ast No observ ation record ed. [email or web address] [facility] [address] [facility], [place], [address], 06/21/2022 16:46:20 Result Notes None recorded. Problems Name Problem SNOMED Code Status Onset Date Resolution Date Notes Provider Name and Address Organization Details Recorded Time Kidney stone 79949557 Active 2015 From Automated Load;Provi nimesh: Daniele Reyna, Fer;Janee norths: Active Not Available [facility] 6 03:46:11 Ureteric stone 83969156 Active 2014 From Automated Load;Provi nimesh: Daniele Reyna, Fer;Janee tus: Active Not Available [facility] 6 03:46:11 Overactiv e urinary bladder 023639275 Active 2022 ISABELA TORRES PA-C [address] [place], [address] , [facility] 3 11:21:50 Right flank pain 800990895 Active 2022 ISABELA TORRES PA-C [address] [place], [address] , [facility] 3 11:21:52 Problem Notes None recorded. Procedures Surgical History Date Name Laterality Status Provider Name and Address Organization Details Recorded Time Kidney Stone Removal completed [facility] 05/31/2022 15:20:08 Endometrial cryoablation completed [facility] 05/31/2022 15:20:31 Imaging Results Imaging Date Name Status LastModified by Organiz ation Details LastModified Time 06/09/2022 CT, abdomen + pelvis, w/o contrast completed [email or web address] [facility] ([facility] [address] [facility], [place], [address], 06/21/2022 16:46:20 Procedure Notes None recorded. Medical Equipment None Reported. Allergies No known drug allergies Medications Name Sig Start Date Stop Date Status Note LastModified by Organization Details LastModified Time Multiple Vitamin capsule Daily active Duration: 30 days;Freq uency: daily;Med ication Descripti on: multivita min; Dosage:1; Route:ora l; refills:3 ; Quantity: 100 capsule Not Available Not Available Not Available losartan 100 mg tablet 05/31 completed Medicatio n Descripti on: losartan; Route:ora l; refills:0 Not Available Not Available Not Available lisinopril active Not Available Not Av ailable Not Available metoprolol succinate 05/21 completed Not Available Not Available Not Available Urocit-K 15 15 mEq (1,620 mg) tablet,ext ended release Two times a day 05/21 completed Duration: 30 days;Freq uency: bid;Medic ation Descripti on: potassium citrate; Dosage:1; Route:ora l; refills:1 2; Quantity: 60 tablet, extended release Not Available Not Available Not Available Vitals Date Recorded Body height Body mass index (BMI) Body weight Provider Name and Address Organization Details Last Updated DateTime 05/29/2022 157.48 cm 28.3 kg/m2 61856.82 g Waldo Gomez [facility] 05/31/2022 15:17:48 Date Recorded Body height Body mass index (BMI) Body weight Provider Name and Address Organization Details Last Updated DateTime 01/01/2023 157.48 cm 28.3 kg/m2 90305.82 g Waldo Gomez [facility] 01/01/2023 15:36:59 Date Recorded Body height Body mass index (BMI) Body weight Provider Name and Address Organization Details Last Updated DateTime 05/21/2023 157.48 cm 28.3 kg/m2 74063.82 g Kelly Cooper [facility] 05/21/2023 09:13:13 Social History Question Answer Notes LastModified by Organizat ion Details LastModified Time Tobacco Smoking Status Never Smoker Waldo Gomez [facility] 05/31/2022 15:19:35 What Is Your Level Of Alcohol Consumption? Occasional Information not available 05/31/2022 What Was The Date Of Your Most Recent Tobacco Screening? 05/21/2023 Information not available 05/21/2023 What Is Your Relationship Status? Information not available 05/31/2022 Sex: Unknown Functional Status None recorded. Mental Status None recorded. Family History Relationship Description Onset Age of this Age Resolved Age Notes LastModified by Organization Details LastModified Time Father Diabetes mellitus Not available 2021 15:19:04 Father Kidney stone Not availab le 05/31/2022 15:19:11 Mother Family history of malignant neoplasm Not available 2021 15:19:17 Medical History Condition Response Hypertension Y Gynecological HistoryNo gynecological history recorded. Obstetrics History GPAL:G 0 P 0 0 0 0 Past Encounters Encounter ID Performer Location Encounter Start Date Encounter Closed Date Diagnosis/Indication Diagnosis SNOMED-CT Code Diagnosis ICD10 Code Diagnosis Note [id number] FER VAZQUEZ JR, MD [facility] [address] [place] [address] 05/29/2022 14:53:22 06/01/2022 18:41:02 Kidney stone 94480498 N20.0 Right flank pain 0413558 09 R10.9 [id number] FER VAZQUEZ JR, MD [facility] [address] [facility] [place] [address] 01/01/2023 15:22:05 01/01/2023 16:12:46 Kidney stone [id number] N20.0 [id number] ISABELA TORRES PA-C [facility] [address],[place] [address] [place] [address] 05/21/2023 09:12:24 05/23/2023 10:28:30 Right flank pain [id number] R10.9 with leuks on dip today, will send for culture and notify of results right flank pain has been ongoing for 3 years. significan tly improved with hysterecto my but still present. Intermitte nt, worse with laying on that side. Improved with urination sometimes Had CT 06/2022 which showed no stones.MARY 11/2022 showed several small right sided renal stones largest of which was 4 mm to have KUB and MARY at same facility as november for comparison to assess for renal stones Overactive urinary bladder [id number] N32.81 discussed frequency, urgency, uui suggestive of oabmay be having some referred bladder spasm paindiscus sed bladder irritants which patient will reduce, declines medication treatment at this time Health Concerns Section Related Observation LastModified by Organization Detai ls LastModified Time None Recorded Concern Status LastModified by Organization Details LastModified Time None Recorded Advance Directives Directive None Recorded Payers Encounter Date Sequence Insurance Name Policy Number Policy Moreno Covered Member ID Moreno Member ID Guarantor Name 05/29/2022 3 [employer] [facility] [id number] [facility] 01/01/2023 3 [employer] [facility] [id number] Lissette Recinos 05/21/2023 3 [employer]ETBARRETT Recinos [id number] Lissette Recinos Notes Date Note Type Note Provider Name and Address Organization Details Recorded Time 05/29/2022 text/html patient is in to day with a history of kidney stones having undergone kidney stone surgery in 2014. Recently she has had intermittent but persistent right flank pain. She's been treated for ovarian cyst and has not been evaluated for stones. She did have several microscopic hematuria episodes to her primary care physician. She denies gross hematuria. She denies fevers and chills. She decide denies fevers and chills. FER VAZQUEZ JR, MD [address] [place] [address], [phone], [facility] 05/31/2022 16:59:21 01/01/2023 text/html patient is in to day with a history of kidney stones having undergone kidney stone surgery in 2014. Recently she has had intermittent but persistent right flank pain. She's been treated for ovarian cyst and has not been evaluated for stones. She did have several microscopic hematuria episodes to her primary care physician. She denies gross hematuria. She denies fevers and chills. She decide denies fevers and chills. June 2022 CT scan shows no stones Ultrasound of the abdomen November 2022 shows right nonobstructing renal calculus, 4 mm FER VAZQUEZ JR, MD [address] [place] [address], [phone], [facility] 01/07/2023 19:08:26 05/21/2023 text/html Ms. Recinos is a 42 y/o F with a history of kidney stones having undergone kidney stone surgery in 2014. From 05/2022: Recently she has had intermittent but persistent right flank pain. She's been treated for ovarian cyst and has not been evaluated for stones. She did have several microscopic hematuria episodes to her primary care physician. She denies gross hematuria. She denies fevers and chills. She decide denies fevers and chills. June 2022 CT scan shows no stones Ultrasound of the abdomen November 2022 shows right nonobstructing renal calculus, 4 mm. Advised f/u in 4 months with KUB. TODAY - 05/21/23Describes for the last 3 years has had intermittent right flank pain.History of 6 kidney stones in the past, so felt was that and saw PCP. Found to have ovarian cyst so started on OCP, but still with discomfort. PCP suggested hysterectomy. Given referral to OBGYN.Referral to Dr. Quinonez who suggested hysterectomy but tried endometriosis medication and did not improve symptoms. [facility].CT abdomen/pelvis w/o 06/09/22: no ureteral or renal stonesSaw Dr. Lal for second opinion and did more scans. Found 3 very tiny stones on MARY.Symptoms much relieved with recent hysterectomy february 2023, but still having some mild pain, though not needing to take anything for pain.Noted to have a UTI after f/u for hysterectomy, treated by Dr. Lal. Still with mild right flank pain, which is much improved from prior.Does have a lot of frequency and nocturia.Feels that she has a lump at right flank when having pain and worse pain with lying on that right side Describes irritation at urethra with frequency and urgency.Thought she might have been passing a kidney stone so was trying to drink more water and lemon drinks and beer. Thinks she passed a stone but did not see one. never with known history of uric acid stones, thinks that she had calcium phosphate in the past. sometimes with pain that is relieved with urination on that right side sometimes with strong odorfrequency - q45-60 minutes on averagenocturia - 2-3xurgency - significantUUI - very occassionalpads - thinking she may need to start no destiny hematuria ISABELA TORRES PA-C [address] [place], [phone], [facility] 05/23/2023 09:41:04 OBGyn Episode No OBEpisode recorded.
--- NOTE | 2024-12-30 15:15 | MM_ITS ---
PROCEDURE INFORMATION: Exam: MG Right Diagnostic Breast Tomosynthesis Exam date and time: 12/30/2024 3:14 PM Age: 44 years old Clinical indication: Region of palpable concern right breast. Bilateral breast pain. TECHNIQUE: Imaging protocol: Right Diagnostic tomosynthesis and 2D mammography including computer-aided detection (CAD) when performed. Unilateral or bilateral exam. COMPARISON: 1. MG MM DIG SCREENING MAMM BI W/CAD 11/09/2023 2:36 PM 2. MG MM DIG SCREENING MAMM BI W/CAD 10/23/2022 4:09 PM FINDINGS: MAMMOGRAPHY: Breast composition: There are scattered areas of fibroglandular density. Breast mammogram findings: Bilateral full field CC and MLO tomosynthesis views were obtained. Right breast spot compression views were also obtained. Mass: No suspicious masses. Architectural distortion: None. Calcifications: No suspicious calcifications. Asymmetric density: None. Skin thickening: None. Axillary adenopathy: None. IMPRESSION: No mammographic finding to explain the patient's bilateral breast pain or right breast region of palpable concern. Recommend further evaluation with right breast ultrasound. ASSESSMENT: BI-RADS Category 0: Incomplete- Need Additional Imaging Evaluation.
== END 2024-12-30 23:59 | disposition home or self-care (01) ==
LOC: RAD 15:10
PROVIDERS: PCP Internal Medicine Adolescent Medicine; Visit Provider Obstetrics & Gynecology
DX: N64.4 Mastodynia (principal); N63.10 Unspecified lump in the right breast, unspecified quadrant
CPT/HCPCS: 77062; 77066; G0279

== ENCOUNTER 2025-01-07 15:33 | Outpatient (CLI) | payer OTHER, SELFPAY ==
--- NOTE | 2025-01-07 15:30 | US_ITS ---
PROCEDURE INFORMATION: Exam: US Right Breast, Complete Exam date and time: 01/07/2025 3:27 PM Age: 44 years old Clinical indication: Breast pain; Right; negative mammogram on 12/30/2024. TECHNIQUE: Imaging protocol: Complete ultrasound of all four quadrants of the right breast and the retroareolar regions, including ultrasound of the axilla when performed. COMPARISON: MG MM DIG MAMM BI DX W/CAD 12/30/2024 3:14 PM FINDINGS: ULTRASOUND: Breast ultrasound findings: In the palpable area of concern in the right breast upper inner quadrant 12 o'clock axis, 3 cm from the nipple, there is an incidental cyst that measures 0.3 cm. There is no suspicious mass, shadowing, or distortion. No right axillary adenopathy. IMPRESSION: 1. No sonographic evidence of malignancy. No abnormality to explain the cause of the patient's palpable area of concern/pain in the right breast. Continued clinical monitoring is recommended. 2. Further evaluation of a palpable abnormality should be based on clinical grounds regardless of radiographic findings or lack thereof. 3. Annual bilateral mammographic screening is recommended unless otherwise clinically indicated. ASSESSMENT: BI-RADS Category 2: Benign.
--- OUTSIDE RECORDS SUMMARY | 2025-01-07 15:35 | XMS_ITS | Data Portability ---
Author Organization [place] - SHELBY Gillis [employer] CLOSED Address [address] [place] [address] Care Team Providers Care Medical Imaging Tech Name Role Phone JACKIE LUCIANO Primary Care Provider Assessment No assessment recorded. Plan of Treatment Reminders Order Date Submit Date Provider Last Modified By Organization Details Last Modified Time Details Appointments None recorded. Lab urinalysi s panel, auto [address] Extended Services With [facility], [address], [place] [address], [address], 3 09:55:11 urinalysi s panel, auto 2022 023 [facility] Extended Services With [facility], [address], [address], [place], [address], 3 19:08:24 kidney stone analysis [address] [facility], [address] [place] [address], [address], 3 16:41:46 urinalysi s panel, auto 2021 022 [facility] Extended Services With [facility], [address], [address], [place], [address], 2 16:59:17 Referral None recorded. Procedures None recorded. Surgeries None recorded. Imaging US, kidney [address] [facility], [address], [place], [address], 4 15:59:42 XR, kidney + ureter + bladder [address] [facility], [address], [place], [address], 4 15:59:42 CT, abdomen + pelvis, w/o contrast - CT ABD/PEL W/O CONTRASTP LEASE CONTACT LISSETTE RECINOS AT # [id number] , effective 2 - 2, for procedure code [id number] 2021 022 [facility] (Centralized Scheduling), [address] [facility], [place], [address], 18:02:52 Medication Orders None recorded. Patient TargetsNo targets recorded. Patient Instructions Encounter Date Encounter Id Patient Instructions Last Modified By Organization Details Last Modified Time 05/29/2022 [id number] learning about healthy weight tslabaugh Not available 05/31/2022 16:59:17 05/21/2023 [id number] See notes above and in HPI Return to review results of MARY and KUB Return sooner if needed Pt understands and agrees with care plan. No further questions or concerns at this time Not available 05/21/2023 11:22:33 Reason for Referral None Reported. Results Created Date Observation Date Name Description Value Unit Range Abnormal Flag Note LastModifiedBy Organization Detail LastModifiedTime 05/31/2005/31/2022 urina lysis panel , auto Unknown Analyte Clean Catch Not Available [facility] [place] Extended Services With [facility] [address] [facility] [address], [place], [address], 05/31/2022 15:21:27 05/31/20 22 05/31/2022 urina lysis panel , auto Unknown Analyte Yellow Not Available [facility] [place] Extended Services With [facility] [address], [place], [address], 05/31/2022 15:21:27 05/31/20 22 05/31/2022 urina lysis panel , auto Unknown Analyte Clear Not Available [facility] [place] Extended Services With [facility] [address], [place], [address], 05/31/2022 15:21:27 05/31/20 22 05/31/2022 urina lysis panel , auto Unknown Analyte 1.015 Not Available [facility] Extended Services With [facility] [address], [place], [address], 05/31/2022 15:21:27 05/31/20 22 05/31/2022 urina lysis panel , auto Unknown Analyte 1.003- 1.035 Not Available [facility] [place] Extended Services With [facility] [address], [place], [address], 05/31/2022 15:21:27 05/31/20 22 05/31/2022 urina lysis panel , auto Unknown Analyte 7.0 Not Available [facility] [place] [facility] [address], [place], [address], 05/31/2022 15:21:27 05/31/20 22 05/31/2022 urina lysis panel , auto Unknown Analyte 5.0-8. 0 Not Available [facility] [place] Extended Services With [facility] [address], [place], [address], 05/31/2022 15:21:27 05/31/20 22 05/31/2022 urina lysis panel , auto Unknown Analyte 25 Joni/ul Trace Not Available [facility] [place] Extended Services With [facility] [address], [place], [address], 05/31/2022 15:21:27 05/31/20 22 05/31/2022 urina lysis panel , auto Unknown Analyte Negati ve Not Available [facility] [place] Extended Services With [facility] [address], [place], [address], 05/31/2022 15:21:27 05/31/20 22 05/31/2022 urina lysis panel , auto Unknown Analyte Negati ve Not Available [facility] [place] Extended Services With [facility] [address], [place], [address], 05/31/2022 15:21:27 05/31/20 22 05/31/2022 urina lysis panel , auto Unknown Analyte Negati ve Not Available [facility] [place] Extended Services With [facility] [address], [place], [address], 05/31/2022 15:21:27 05/31/20 22 05/31/2022 urina lysis panel , auto Unknown Analyte Negati ve Not Available [facility] [place] Extended Services With [facility] [address], [place], [address], 05/31/2022 15:21:27 05/31/20 22 05/31/2022 urina lysis panel , auto Unknown Analyte Negati ve Not Available [facility] [place] Extended Services With [facility] [address], [place], [address], 05/31/2022 15:21:27 05/31/20 22 05/31/2022 urina lysis panel , auto Unknown Analyte Normal Not Available [facility] [place] [facility] [address], [place], [address], 05/31/2022 15:21:27 05/31/20 22 05/31/2022 urina lysis panel , auto Unknown Analyte Normal Not Available [facility] Extended Services With [facility] [address], [place], [address], 05/31/2022 15:21:27 05/31/20 22 05/31/2022 urina lysis panel , auto Unknown Analyte Negati ve Not Available [facility] Extended Services With [facility] [address], [place], [address], 05/31/2022 15:21:27 05/31/20 22 05/31/2022 urina lysis panel , auto Unknown Analyte Negati ve Not Available [facility] [place] Extended Services With [facility] [address], [place], [address], 05/31/2022 15:21:27 05/31/20 22 05/31/2022 urina lysis panel , auto Unknown Analyte Normal Not Available [facility] Extended Services With [facility] [address], [place], [address], 05/31/2022 15:21:27 05/31/20 22 05/31/2022 urina lysis panel , auto Unknown Analyte Normal 1 mg/dl Not Available [facility] [place] Extended Services With [facility] [address], [place], [address], 05/31/2022 15:21:27 05/31/20 22 05/31/2022 urina lysis panel , auto Unknown Analyte Negati ve Not Available [facility] [place] Extended Services With [facility] [address], [place], [address], 05/31/2022 15:21:27 05/31/20 22 05/31/2022 urina lysis panel , auto Unknown Analyte Negati ve Not Available [facility] [place] [facility] Services With [facility] [address], [place], [address], 05/31/2022 15:21:27 05/31/20 22 05/31/2022 urina lysis panel , auto Unknown Analyte Negati ve Not Available [facility] Extended Services With [facility] [address], [place], [address], 05/31/2022 15:21:27 05/31/20 22 05/31/2022 urina lysis panel , auto Unknown Analyte Negati ve Not Available [facility] Extended Services With [facility] [address], [place], [address], 05/31/2022 15:21:27 01/02/20 23 01/01/2023 urina lysis panel , auto Unknown Analyte Clean Catch Not Available [facility] Extended Services With [facility] [address], [place], [address], 01/01/2023 15:44:49 01/02/20 23 01/01/2023 urina lysis panel , auto Unknown Analyte Yellow Not Available [facility] Extended Services With [facility] [address], [place], [address], 01/01/2023 15:44:49 01/02/20 23 01/01/2023 urina lysis panel , auto Unknown Analyte Clear Not Available [facility] [place] Extended Services With [facility] [address], [place], [address], 01/01/2023 15:44:49 01/02/20 23 01/01/2023 urina lysis panel , auto Unknown Analyte 1.015 Not Available [facility] Extended Services With [facility] [address], [place], [address], 01/01/2023 15:44:49 01/02/20 23 01/01/2023 urina lysis panel , auto Unknown Analyte 1.003- 1.035 Not Available [facility] Extended Services With [facility] [address], [place], [address], 01/01/2023 15:44:49 01/02/20 23 01/01/2023 urina lysis panel , auto Unknown Analyte 7.0 Not Available [facility] Extended Services With [facility] [address], [place], [address], 01/01/2023 15:44:49 01/02/20 23 01/01/2023 urina lysis panel , auto Unknown Analyte 5.0-8. 0 Not Available [facility] [place] Extended Services With [facility] [address], [place], [address], 01/01/2023 15:44:49 01/02/20 23 01/01/2023 urina lysis panel , auto Unknown Analyte Negati ve Not Available [facility] [place] Extended Services With [facility] [address], [place], [address], 01/01/2023 15:44:49 01/02/20 23 01/01/2023 urina lysis panel , auto Unknown Analyte Negati ve Not Available [facility] [place] [facility] Services With [facility] [address], [place], [address], 01/01/2023 15:44:49 01/02/20 23 01/01/2023 urina lysis panel , auto Unknown Analyte Negati ve Not Available [facility] [place] Extended Services With [facility] [address], [place], [address], 01/01/2023 15:44:49 01/02/20 23 01/01/2023 urina lysis panel , auto Unknown Analyte Negati ve Not Available [facility] [place] Extended Services With [facility] [address], [place], [address], 01/01/2023 15:44:49 01/02/20 23 01/01/2023 urina lysis panel , auto Unknown Analyte Negati ve Not Available [facility] [place] [facility] Services With [facility] [address], [place], [address], 01/01/2023 15:44:49 01/02/20 23 01/01/2023 urina lysis panel , auto Unknown Analyte Negati ve Not Available [facility] [place] [facility] Services With [facility] [address], [place], [address], 01/01/2023 15:44:49 01/02/20 23 01/01/2023 urina lysis panel , auto Unknown Analyte Normal Not Available [facility] Extended Services With [facility] [address], [place], [address], 01/01/2023 15:44:49 01/02/20 23 01/01/2023 urina lysis panel , auto Unknown Analyte Normal Not Available [facility] Extended Services With [place] [address], [place], [address], 01/01/2023 15:44:49 01/02/20 23 01/01/2023 urina lysis panel , auto Unknown Analyte Negati ve Not Available [facility] [place] Extended Services With [facility] [address], [place], [address], 01/01/2023 15:44:49 01/02/20 23 01/01/2023 urina lysis panel , auto Unknown Analyte Negati ve Not Available [facility] [place] Extended Services With [facility] [address], [place], [address], 01/01/2023 15:44:49 01/02/20 23 01/01/2023 urina lysis panel , auto Unknown Analyte Normal Not Available [facility] [place] [facility] With [facility] [address], [place], [address], 01/01/2023 15:44:49 01/02/20 23 01/01/2023 urina lysis panel , auto Unknown Analyte Normal 1 mg/dl Not Available [facility] [place] Extended Services With [facility] [address], [place], [address], 01/01/2023 15:44:49 01/02/20 23 01/01/2023 urina lysis panel , auto Unknown Analyte Negati ve Not Available [facility] [place] Extended Services With [facility] [address], [place], [address], 01/01/2023 15:44:49 01/02/20 23 01/01/2023 urina lysis panel , auto Unknown Analyte Negati ve Not Available [facility] [place] Extended Services With [facility] [address], [place], [address], 01/01/2023 15:44:49 01/02/20 23 01/01/2023 urina lysis panel , auto Unknown Analyte Negati ve Not Available [facility] [place] Extended Services With [facility] [address], [place], [address], 01/01/2023 15:44:49 01/02/20 23 01/01/2023 urina lysis panel , auto Unknown Analyte Negati ve Not Available [facility] [place] Extended Services With [facility] [address], [place], [address], 01/01/2023 15:44:49 05/21/20 23 05/21/2023 urina lysis panel , auto Unknown Analyte Clean Catch Not Available [facility] [place] Extended Services With [facility] [address], [place], [address], 05/21/2023 09:30:51 05/21/20 23 05/21/2023 urina lysis panel , auto Unknown Analyte Yellow Not Available [facility] [place] [facility] With [facility] [address], [place], [address], 05/21/2023 09:30:51 05/21/20 23 05/21/2023 urina lysis panel , auto Unknown Analyte Clear Not Available [facility] [place] Extended Services With [facility] [address], [place], [address], 05/21/2023 09:30:51 05/21/20 23 05/21/2023 urina lysis panel , auto Unknown Analyte 1.015 Not Available [facility] [place] [facility] With [facility] [address], [place], [address], 05/21/2023 09:30:51 05/21/20 23 05/21/2023 urina lysis panel , auto Unknown Analyte 6.5 Not Available [facility] [place] Extended Services With [facility] [address], [place], [address], 05/21/2023 09:30:51 05/21/20 23 05/21/2023 urina lysis panel , auto Unknown Analyte 75 Joni/ul (+) Not Available [facility] [place] Extended Services With [facility] [address], [place], [address], 05/21/2023 09:30:51 05/21/20 23 05/21/2023 urina lysis panel , auto Unknown Analyte Negati ve Not Available [facility] [place] Extended Services With [facility] [address], [place], [address], 05/21/2023 09:30:51 05/21/20 23 05/21/2023 urina lysis panel , auto Unknown Analyte Trace Not Available [facility] Extended Services With [facility] [address], [place], [address], 05/21/2023 09:30:51 05/21/20 23 05/21/2023 urina lysis panel , auto Unknown Analyte Normal Not Available [facility] Extended Services With [facility] [address], [place], [address], 05/21/2023 09:30:51 05/21/20 23 05/21/2023 urina lysis panel , auto Unknown Analyte Negati ve Not Available [facility] [address], [place], [address], 05/21/2023 09:30:51 05/21/20 23 05/21/2023 urina lysis panel , auto Unknown Analyte Normal Not Available [facility] [place] Extended Services With [facility] [address] [facility] [address], [place], [address], 05/21/2023 09:30:51 05/21/20 23 05/21/2023 urina lysis panel , auto Unknown Analyte Negati ve Not Available [facility] Extended Services With [facility] [address] [facility] [address], [place], [address], 05/21/2023 09:30:51 05/21/20 23 05/21/2023 urina lysis panel , auto Unknown Analyte Negati ve Not Available [facility] Extended Services With [facility] [address] [facility] [address], [place], [address], 05/21/2023 09:30:51 05/22/20 23 05/24/2023 URINE CULTU RE urine culture COLON Y COUNT : 10,00 0 - 100,0 00 CFU/M L Three or more isola courtney; mixed skin golden . Not Available [facility] [address] [facility], [place], [address], 05/24/2023 15:07:50 06/10/20 22 06/09/2022 CT, abdom en + pelvi s, w/o contr ast No observ ation record ed. [email or web address] [facility] ([facility] [address] [facility], [place], [address], 06/21/2022 16:46:20 Result Notes None recorded. Problems Name Problem SNOMED Code Status Onset Date Resolution Date Notes Provider Name and Address Organization Details Recorded Time Kidney stone 46974823 Active 2015 From Automated Load;Provi nimesh: aDniele Reyna, Fer;Janee norths: Active Not Available [facility] 6 03:46:11 Ureteric stone 38270325 Active 2014 From Automated Load;Provi nimesh: Daniele Reyna, Fer;Janee tus: Active Not Available [facility] 6 03:46:11 Overactiv e urinary bladder 579321616 Active 2022 ISABELA TORRES PA-C [address] [place], [address] , [facility] 3 11:21:50 Right flank pain 554080304 Active 2022 ISABELA TORRES PA-C [address] [place], [address] , [facility] 3 11:21:52 Problem Notes None recorded. Procedures Surgical History Date Name Laterality Status Provider Name and Address Organization Details Recorded Time Kidney Stone Removal completed [facility] 05/31/2022 15:20:08 Endometrial cryoablation [place] [facility] 05/31/2022 15:20:31 Imaging Results Imaging Date Name Status LastModified by Organiz ation Details LastModified Time 06/09/2022 CT, abdomen + pelvis, w/o contrast completed [email or web address] [facility] [address] [facility], [place], [address], 06/21/2022 16:46:20 Procedure Notes None recorded. Medical [...] Updated DateTime 05/29/2022 157.48 cm 28.3 kg/m2 32739.82 g Waldo Gomez [facility] 05/31/2022 15:17:48 Date Recorded Body height Body mass index (BMI) Body weight Provider Name and Address Organization Details Last Updated DateTime 01/01/2023 157.48 cm 28.3 kg/m2 03468.82 g Waldo Gomez [facility] 01/01/2023 15:36:59 Date Recorded Body height Body mass index (BMI) Body weight Provider Name and Address Organization Details Last Updated DateTime 05/21/2023 157.48 cm 28.3 kg/m2 87717.82 g Kelly Cooper [facility] 05/21/2023 09:13:13 Social History Question Answer Notes LastModified by Organizat ion Details LastModified Time Tobacco Smoking Status Never Smoker Waldo Gomez [facility] 05/31/2022 15:19:35 What Is Your Level Of Alcohol Consumption? Occasional Information not available 05/31/2022 What Was The Date Of Your Most Recent Tobacco Screening? 05/21/2023 [email or web address] Information not available 05/21/2023 What Is Your [...] SNOMED-CT Code Diagnosis ICD10 Code Diagnosis Note [id number] FER VAZQUEZ JR, MD [facility] [address] [place] [address] 05/29/2022 14:53:22 06/01/2022 18:41:02 Kidney stone 14724395 N20.0 Right flank pain 8665938 09 R10.9 [id number] FER VAZQUEZ JR, MD [facility] [address] [facility] [place] [address] 01/01/2023 15:22:05 01/01/2023 16:12:46 Kidney stone 16596737 N20.0 [id number] ISABELA TORRES PA-C [facility] [address] [facility] [place] [address] 05/21/2023 09:12:24 05/23/2023 10:28:30 Right flank pain 915714523 R10.9 with leuks on dip today, will [...] assess for renal stones Overactive urinary bladder 831295004 N32.81 discussed frequency, urgency, uui suggestive of oabmay be having some referred bladder spasm paindiscus sed bladder irritants which patient will reduce, declines medication treatment at this time Health Concerns Section Related Observation LastModified by Organization Detai ls LastModified Time None Recorded Concern Status LastModified by Organization Details LastModified Time None Recorded Advance Directives Directive None Recorded Payers Insurance Date Sequence Insurance Name Policy Number Policy Moreno Covered Member ID Moreno Member ID Guarantor Name 01/22/2023 2 [facility] [id number] [facility] Jorje 05/31/2023 2 [facility] (POS II) Lissette Recinos [id number] Lissette Markos Recinos 05/25/2023 1 [facility] (MEDICAID HMO) Lissette Recinos [id number] Lissette Recinos 05/25/2023 3 [facility] Lissette Recinos [id number] Lissette Markos Recinos Notes Date Note Type Note Provider [...] fevers and chills. FER VAZQUEZ JR, MD [address] [place] [address], [phone], [facility] 05/31/2022 16:59:21 01/01/2023 text/html patient is in [...] calculus, 4 mm FER VAZQUEZ JR, MD [address] [place] [address], [phone], [facility] 01/07/2023 19:08:26 05/21/2023 text/html Ms. Recinos is [...] did not improve symptoms. [facility] sure not a kidney [...] no destiny hematuria ISABELA TORRES PA-C [address] [place], [address], [place] [facility] 05/23/2023 09:41:04 OBGyn Episode No [id number]
== END 2025-01-07 23:59 | disposition home or self-care (01) ==
LOC: RAD 15:33
PROVIDERS: PCP Internal Medicine Adolescent Medicine; Visit Provider Obstetrics & Gynecology
DX: N64.4 Mastodynia (principal)
CPT/HCPCS: 76641